=== PATIENT | female | born 1960 | race Caucasian/White ===

== ENCOUNTER 2024-02-11 08:40 | Outpatient (OUT) | payer OTHER, SELFPAY ==
--- NOTE | 2024-02-11 08:43 | MM_ITS ---
Patient Name: BROOKLYNN KAISER MR#: [id number] : 1960 Exam Date: 02/11/2024 Ordering Doctor: DR MAGDI MURILLO M.D. RADIOLOGY REPORT PROCEDURE: MM TOMOSYNTHESIS SCREENING BI COMPARISON: MG MAMM SCREEN 3D DEANN CAD, 11/05/2022. MG MAMM SCREEN DEANN W CAD, 01/30/2021. MG MAMM SCREEN DEANN W CAD, 04/18/2019. MG MAMM DEANN SCRN W CAD DIG, 04/09/2015. INDICATIONS: Screening Calculator Name NCI Breast Cancer Risk Assessment Tool 5 Year Breast Cancer Risk 1.10% Lifetime Breast Cancer Risk 4.90% Personal Breast Cancer No Personal Ovarian Cancer No Treatments None Family Cancers Father with esophageal cancer at age 74. LOCATION: [facility] BREAST COMPOSITION: Heterogeneously dense,which may obscure small masses. FINDINGS: DIAGNOSTIC CATEGORY 1--NEGATIVE. RIGHT BREAST: No significant suspicious finding. No significant change has occurred. LEFT BREAST: No significant suspicious finding. No significant change has occurred. RECOMMENDATIONS: ROUTINE MAMMOGRAM AND CLINICAL EVALUATION IN 12 MONTHS. PLEASE NOTE: A NORMAL MAMMOGRAM DOES NOT EXCLUDE THE POSSIBILITY OF BREAST CANCER. A CLINICALLY SUSPICIOUS PALPABLE LUMP SHOULD BE BIOPSIED. Dictated by: Zuhair Vazquez M.D. on 02/11/2024 at 15:16 Approved by: Zuhair Vazquez M.D. on 02/11/2024 at 15:19
== END 2024-02-11 08:41 | disposition home or self-care (01) ==
LOC: MAMMO 08:40
PROVIDERS: PCP Internal Medicine; Visit Provider Internal Medicine
DX: Z12.31 Encounter for screening mammogram for malignant neoplasm of breast (principal); Z80.8 Family history of malignant neoplasm of other organs or systems
CPT/HCPCS: 77063; 77067

== ENCOUNTER 2025-02-15 09:57 | Outpatient (OUT) | payer OTHER, SELFPAY ==
--- NOTE | 2025-02-15 09:59 | MM_ITS ---
Patient Name: BROOKLYNN KAISER MR#: [id number] : 1960 Exam Date: 02/15/2025 Ordering Doctor: DR DELROY KEMP RADIOLOGY REPORT PROCEDURE: MM TOMOSYNTHESIS SCREENING BI COMPARISON: MM TOMOSYNTHESIS SCREENING BI, 02/11/2024. MG MAMM SCREEN 3D DEANN CAD, 11/05/2022. MG MAMM SCREEN DEANN W CAD, 01/30/2021. MG MAMM DEANN SCRN W CAD DIG, 04/09/2015. INDICATIONS: Screening Calculator Name NCI Breast Cancer Risk Assessment Tool 5 Year Breast Cancer Risk 1.20% Lifetime Breast Cancer Risk 4.70% Personal Breast Cancer No Personal Ovarian Cancer No Treatments None Family Cancers Father with esophageal cancer at age 74. LOCATION: The BREAST COMPOSITION: The breasts are heterogeneously dense,which may obscure small masses. FINDINGS: DIAGNOSTIC CATEGORY 1--NEGATIVE. LEFT BREAST: No significant suspicious finding. RIGHT BREAST: No significant suspicious finding. RECOMMENDATIONS: ROUTINE MAMMOGRAM AND CLINICAL EVALUATION IN 12 MONTHS. PLEASE NOTE: A NORMAL MAMMOGRAM DOES NOT EXCLUDE THE POSSIBILITY OF BREAST CANCER. A CLINICALLY SUSPICIOUS PALPABLE LUMP SHOULD BE BIOPSIED. Dictated by: Amanuel Mancuso DO on 02/15/2025 at 16:29 Approved by: Amanuel Mancuso DO on 02/15/2025 at 16:30
--- OUTSIDE RECORDS SUMMARY | 2025-02-15 10:11 | XMS_ITS | CCD ---
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 Facility 12-28-2024 Telephone encounter Note Form atting of this note might be different from the original. Pt not seen since 06/2024 [facility] 12-28-2024 Miscellaneous Notes Formattin g of this note might be different from the original. Pt not seen since 06/2024 documented in this encounter [facility] 10-23-2024 Telephone encounter Note Form atting of this note might be different from the original. OARRS reviewed, Rx sent into patient's pharmacy. [facility] 10-23-2024 Miscellaneous Notes Formattin g of this note might be different from the original. OARRS reviewed, Rx sent into patient's pharmacy. documented in this encounter [facility] 09-23-2024 Telephone encounter Note Form atting of this note might be different from the original. OARRS reviewed, Rx sent into patient's pharmacy. [facility] 09-23-2024 Miscellaneous Notes Formattin g of this note might be different from the original. OARRS reviewed, Rx sent into patient's pharmacy. documented in this encounter [facility] 08-21-2024 Telephone encounter Note Form atting of this note might be different from the original. OARRS reviewed, Rx sent into patient's pharmacy. [facility] 08-21-2024 Miscellaneous Notes Formattin g of this note might be different from the original. OARRS reviewed, Rx sent into patient's pharmacy. documented in this encounter [facility] 07-21-2024 Telephone encounter Note Form atting of this note might be different from the original. OARRS reviewed, Rx sent into patient's pharmacy. [facility] 07-21-2024 Miscellaneous Notes Formattin g of this note might be different from the original. OARRS reviewed, Rx sent into patient's pharmacy. documented in this encounter [facility] 07-19-2024 History of Presen t illness Narrative Images from the original note were not included. Subjective Patient ID: Brooklynn Kaiser is a 63 y.o. female who presents for IGT. PT DOING WELL ON CURRENT MEDICATIONS OCC CHECKS BLOOD SUGARS AT HOME RANGES 100'S Current Outpatient Medications on File Prior to Visit Medication Sig Dispense Refill amphetamine-dextroamphetamine (Adderall) 30 MG tablet Take 1 tablet (30 mg) by mouth in the morning and 1 tablet (30 mg) before bedtime. 60 tablet 0 clotrimazole-betamethasone (Lotrisone) cream Apply topically 2 (two) times a day. diclofenac (Voltaren) 50 MG EC tablet Take 50 mg by mouth in the morning and 50 mg before bedtime. estrogens, conjugated,-methylTESTOSTERone (EEMT,Covaryx) 1.25-2.5 MG tablet Take 1 tablet by mouth Daily 30 tablet 5 levothyroxine (Synthroid, Levoxyl) 112 MCG tablet TAKE 1 TABLET BY MOUTH EVERY DAY IN THE MORNING ON AN EMPTY STOMACH 100 tablet 3 Brcxlcnp-Xozwtslja-WS 1 % solution Administer 4 drops into each ear in the morning and 4 drops in the evening and 4 drops before bedtime. 7.5 mL 3 Ozempic, 1 MG/DOSE, 4 MG/3ML solution pen-injector Inject 1 mg under the skin 1 (one) time per week tiZANidine (Zanaflex) 4 MG tablet Take 1 tablet (4 mg) by mouth as needed at bedtime for muscle spasms 30 tablet 0 No current facility-administered medications on file prior to visit. No Known Allergies Social History Tobacco Use Smoking status: Former Current packs/day: 0.00 Average packs/day: 1 pack/day for 36.2 years (36.2 ttl pk-yrs) Types: Cigarettes Start date: 11/29/1977 Quit date: 01/29/2014 Years since quittin.4 Smokeless tobacco: Never Substance Use Topics Alcohol use: Never Drug use: Never Family History Problem Relation Name Age of Onset Cancer Father Messi Abarca Diabetes Father Messi Abarca Diabetes Paternal Grandmother Selena New Stroke Paternal Grandmother Selena New Cancer Son Amanuel Martines Diabetes Father's Brother Shaq Abarca Diabetes Father's Brother Mac Abarca Miscarriages / Stillbirths Daughter Tatianna Miller Past Medical History: Diagnosis Date ADHD (attention deficit hyperactivity disorder) ([facility]) 2017 Cataract 2020 Diabetes mellitus ([facility]) 2012 Disease of thyroid gland ([facility]) 1997 Varicella 1970 Visual impairment Past Surgical History: Procedure Laterality Date EYE SURGERY 2020 HYSTERECTOMY 1999 TUBAL LIGATION 1996 Visit Vitals BP 122/70 Pulse 88 Ht 5' 4 Wt 143 lb SpO2 97% BMI 24.55 kg/m Smoking Status Former BSA 1.71 m Review of Systems Constitutional: Negative for chills, fatigue and fever. Respiratory: Negative for cough, shortness of breath and wheezing. Cardiovascular: Negative for chest pain, palpitations and leg swelling. Gastrointestinal: Negative for abdominal pain, constipation, diarrhea, nausea and vomiting. Skin: Negative for rash. Objective Physical Exam Constitutional: General: She is not in acute distress. Appearance: Normal appearance. She is well-developed. HENT: Head: Normocephalic and atraumatic. Eyes: General: No scleral icterus. Conjunctiva/sclera: Conjunctivae normal. Cardiovascular: Rate and Rhythm: Normal rate and regular rhythm. Heart sounds: Normal heart sounds. No murmur heard. Pulmonary: Effort: Pulmonary effort is normal. No respiratory distress. Breath sounds: Normal breath sounds. No wheezing, rhonchi or rales. Skin: General: Skin is warm and dry. Neurological: General: No focal deficit present. Mental Status: She is alert and oriented to person, place, and time. Psychiatric: Mood and Affect: Mood normal. Behavior: Behavior normal. Office Visit on 07/19/2024 Component Date Value Ref Range Status Hemoglobin A1C 07/19/2024 5.2 Final Office Visit on 04/21/2024 Component Date Value Ref Range Status Hemoglobin A1C 04/21/2024 5.6 Final Assessment/Plan Diagnoses and all orders for this visit: Benign essential hypertension (CMS/HCC) - Comprehensive metabolic panel; Future - CBC and differential Type 2 diabetes mellitus without complication, without long-term current use of insulin (CMS/HCC) - POCT Glycated hemoglobin, total - Lipid panel; Future - Microalbumin / creatinine urine ratio - FSBS log shows good control, most recent A1C is at or near goal. Continue current treatment plan as previously outlined without changes. Hypothyroidism, iatrogenic (CMS/HCC) - TSH W/REFLEX TO FT4; Future Lumbar disc narrowing Sciatica of left side Follow up in about 6 months (around 01/19/2025) for Routine F/U. documented in this encounter [facility] 01-12-2024 Telephone encounter Note Form atting of this note might be different from the original. sent [facility] 02-14-2024 Miscellaneous Notes Formattin g of this note might be different from the original. sent documented in this encounter [facility] 04-05-2022 Evaluation note Encounter Date Diagnosis Assessment Notes March, Insect bite (nonvenomous), left lower leg, initial encounter (ICD-10 - S80.862A) take medication as directed. TDap was updated today. Follow up with primary care provider if symptoms worsen March, Bitten or stung by nonvenomous insect and other nonvenomous arthropods, initial encounter (ICD-10 - W57.XXXA) [employer] Other Evaluation note* Diagnosis Menopausal and female climacteric states documented in this encounter [facility] HealthcareEvaluation note* Diagnosis Attention deficit hyperactivity disorder (ADHD), predominantly inattentive type (CMS/HCC)- Primary documented in this encounter [facility]* Diagnosis Attention deficit hyperactivity disorder (ADHD), predominantly inattentive type (CMS/HCC) documented in this encounter [facility]* Diagnosis Benign essential hypertension (CMS/HCC)- Primary Essential hypertension, benign Type 2 diabetes mellitus without complication, without long-term current use of insulin (CMS/HCC) Hypothyroidism, iatrogenic (CMS/HCC) Other iatrogenic hypothyroidism Lumbar disc narrowing Degeneration of lumbar or lumbosacral intervertebral disc Sciatica of left side documented in this encounter [facility]* Diagnosis Attention deficit disorder, unspecified hyperactivity presence documented [facility] this encounter [facility]* Diagnosis Attention deficit disorder, unspecified hyperactivity presence documented in this encounter [facility]* Diagnosis Attention deficit hyperactivity disorder (ADHD), predominantly inattentive type (CMS/HCC) [facility]* Diagnosis Menopausal and female climacteric states documented [facility]* Diagnosis Attention deficit hyperactivity disorder (ADHD), predominantly inattentive type (CMS/HCC) Hypothyroidism, iatrogenic (CMS/HCC) Other iatrogenic hypothyroidism documented in this encounter [facility] general Narrative - Reported* Type Description Date Medical History ADHD Medical History Graves Disease Medical History type II diabetes Surgical History hysterectomy Surgical History Thyroidectomy Hospitalization History See past surgical hx [employer] Other Summary Purpose Family History No Family History Records FoundNo Family History Records FoundNo Family History Records Found Advance Directives No Advanced Directives Records FoundNo Advanced Directives Records FoundNo Advanced Directives Records Found Additional Source Comments INFORMATION SOURCE (unrecogn ized section and content) DATE CREATED AUTHOR 05/24/2018 [facility] DATE CREATED AUTHOR AUTHOR'S ORGANIZ ATION 03/15/2023 [facility] DATE CREATED AUTHOR AUTHOR'S ORGANIZ ATION 02/04/2025 [facility] EPIC REASON FOR VISIT (unrecogniz ed section and content) Reason Comments Med Refill Reason Onset Date Comments Med Refill 09/23/2024 Reason Onset Date Comments Med Refill 10/23/2024 Reason Comments IGT Reason Onset Date Comments Med Refill 07/21/2024 Reason Onset Date Comments Med Refill 08/18/2024 Reason Onset Date Comments Med Refill 11/24/2024 Reason Onset Date Comments Med Refill 12/28/2024 Care Teams (unrecognized sec tion and content) Phone Banker Relationship Specialty Start Date End Date Roberto Mcclure MD [address] [facility] [address] [place] [address] PCP - General Internal Medicine 04/12/23 Phone Banker Relationship Specialty Start Date End Date Roberto Mcclure MD [address] [facility] [address] [place] [address] PCP - General Internal Medicine 04/12/23 Phone Banker Relationship Specialty Start Date End Date Roberto Mcclure MD [address] [facility] [address] [place] [address] PCP - General Internal Medicine 04/12/23 Phone Banker Relationship Specialty Start Date End Date Roberto Mcclure MD [address] [place] [address] [place] [address] PCP - General Internal Medicine 04/12/23 Phone Banker Relationship Specialty Start Date End Date Roberto Mcclure MD [address] [facility] [address] [place] [address] PCP - General Internal Medicine 04/12/23 Phone Banker Relationship Specialty Start Date End Date Roberto Mcclure MD [address] [facility] [address] [place] [address] PCP - General Internal Medicine 04/12/23 FOR RECORDS PERTAINING TO PATIENTS WHO ARE OR HAVE BEEN ENROLLED IN A CHEMICAL DEPENDENCY/SUBSTANCEABUSE PROGRAM, SOME INFORMATION MAY BE OMITTED. This clinical summary was aggregated from multiple sources. Caution should be exercised in using it in the provision of clinical care. This summary normalizes information from multiple sources, and as a consequence, information in this document may materially change the coding, format and clinical context of patient data. In addition, data may be omitted in some cases. CLINICAL DECISIONS SHOULD BE BASED ON THE PRIMARY CLINICAL RECORDS. [employer] provides no warranty or guarantee of the accuracy or completeness of information in this document.
== END 2025-02-15 09:58 | disposition home or self-care (01) ==
LOC: MAMMO 09:57
PROVIDERS: PCP Internal Medicine; Visit Provider Physician Assistant
DX: Z12.31 Encounter for screening mammogram for malignant neoplasm of breast (principal); Z80.8 Family history of malignant neoplasm of other organs or systems
CPT/HCPCS: 77063; 77067

== ENCOUNTER 2025-05-31 09:35 | Outpatient (OUT) | payer OTHER, SELFPAY ==
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
--- OUTSIDE RECORDS SUMMARY | 2025-05-31 09:37 | XMS_ITS | Encounter Summary ---
Author Organization [facility] Address [address] [facility] [place] [address] Care Team Providers Care Yield Loss Inspector Name Role Phone Roberto Mcclure MD Primary Care Provider [phone] Reason for Visit * Reason Onset Date Comments Med Refill 10/27/2023 Encounter Details Date Type Department Care Team (Late st Contact Info) Description 10/27/2023 Refill [facility] [address] [facility] [address] [place] [address] Roberto Mcclure MD [address] [facility] [address] [place] [address] Attention deficit disorder, unspecified hyperactivity presence Social History Tobacco Use Types Packs/Day Years Used Date Smoking Tobacco: Former Cigarettes 1 36.2 0 11/29/1977 - 01/29/2014 Smokeless Tobacco: Never Alcohol Use Standard Drinks/Week Comments Never 0 (1 standard drink = 0.6 oz pur e alcohol) Humiliation, Afraid, Rape, and Kick questionnair e [...] the phone with family, friends, or neighbors? More than three times a week 05/19/2023 How often do you get togethe r with friends or relatives? Once a week 05/19/2023 How often do you attend chur ch or yazidi services? More than 4 times per year 05/19/2023 Do you belong to any clubs o r organizations such as jehovah's witness groups, unions, fraternal or athletic groups, or school groups? Yes 05/19/2023 How often do you attend meet ings of the clubs or organizations you belong to? More than 4 times per year 05/19/2023 Are you , , di vorced, , never , or living with a partner? 05/19/2023 AUDIT-C Answer Date Recorded Q1: How often do you have a drink containing alc ohol? 2-4 times a month 05/19/2023 Q2: How many drinks containi ng alcohol do you have on a typical day when you are drinking? 1 or 2 05/19/2023 Q3: How often do you have si x or more drinks on one occasion? Less than monthly 05/19/2023 Overall Financial Resource Strain (CARDIA) Answe r Date Recorded How hard is it for you to pa y for the very basics like food, housing, medical care, and heating? Not hard at all 05/19/2023 [facility] - Occupational Stress Questionnaire Answer Date Recorded Do you feel stress - tense, restless, nervous, or anxious, or unable to sleep at night because your mind is troubled all the time - these days? Only a little 05/19/2023 Exercise Vital Sign Answer Date Recorde d On average, how many days pe r week do you engage in moderate to strenuous exercise (like a brisk walk)? 5 days 05/19/2023 On average, how many minutes do you engage in exercise at this level? 30 min 05/19/2023 Hunger Vital Sign Answer Date Recorded Within the past 12 months, y ou worried that your food would run out before you got the money to buy more. Never true 05/19/20 23 Within the past 12 months, t he food you bought just didn't last and you didn't have money to get more. Never true 05/19/2023 PRAPARE - Transportation Answer Date Re corded In the past 12 months, has l ack of transportation kept you from medical appointments or from getting medications? No 04/30 In the past 12 months, has l ack of transportation kept you from meetings, work, or from getting things needed for daily living? No 05/19/2023 Housing Stability Vital Sign Answer [...] place to sleep or slept in a long-term (including now)? No 05/19/2023 Comments Unknown Sex and Gender Information Value Date Recorded Sex Assigned at Not on file Legal Sex Female 7:12 PM EDT Gender Identity Not on file Sexual Orientation Not on file documented as of this encounter Miscellaneous Notes * Telephone Encounter - Tete Garza - 11/04/2023 10:51 AM EST Lvm to call back and get this scheduled * Telephone Encounter - VIRIDIANA Davison - 10/28/2023 8:20 AM EST Please help pt get set up for a controlled med follow up within the next month with Dr. Mcclure. Thisis the last refill until she is seen. * Telephone Encounter - Elaine Mo MA - 10/28/2023 7:18 AM EST Pt needs to make a 3 month follow up appt documented in this encounter Plan of Treatment Upcoming Encounters Date Type Department Care Team (Late st Contact Info) Description 08/01/2025 10:00 AM EDT Office Visit [facility] [address] [facility] [address] [place] [address] Anita Reed PA [address] [facility] [address] [place] [address] documented as of this encounter Visit Diagnoses Diagnosis Attention deficit disorder, unspecified hyperactivity presence documented in this encounter Care Teams Yield Loss Inspector Relationship Specialty Start Date End Date Roberto Mcclure MD [address] [facility] 110 [place] [address] PCP - General Internal Medicine 04/12/23 documented as of this encounter
--- OUTSIDE RECORDS SUMMARY | 2025-05-31 09:37 | XMS_ITS | Encounter Summary ---
Author Organization [facility] Address [address] [facility] [place] [address] Care Team Providers Care Regional Loss Prevention Manager Name Role Phone Roberto Mcclure MD Primary Care Provider [phone] Reason for Visit * Reason Onset Date Comments Med Refill 06/20/2024 Encounter Details Date Type Department Care Team (Late st Contact Info) Description 06/20/2024 Refill [facility] [address] [place] [address] [place] [address] Roberto Mcclure MD [address] [facility] 110 [place] [address] Attention deficit disorder, unspecified hyperactivity presence Social [...] often do you attend chur ch or yarsanism services? More than 4 times per year 05/19/2023 Do you belong to any clubs o r organizations such as uatsdin groups, unions, fraternal or athletic groups, or [...] and heating? Not hard at all 05/19/2023 [facility] of Occupat ional Health - Occupational Stress [...] encounter Miscellaneous Notes * Telephone Encounter - Galina Torres - 06/26/2024 3:39 PM EDT PT SCHEDULED * Telephone Encounter - Galina Torres - 06/21/2024 1:20 PM EDT LVM * Telephone Encounter - VIRIDIANA Davison - 06/20/2024 3:30 PM EDT Please help pt get set up for controlled medication follow up in June. OARRS reviewed, Rx sent into patient's pharmacy. documented in this encounter Plan of Treatment Upcoming Encounters Date Type Department Care Team (Late st Contact Info) Description 08/01/2025 10:00 AM EDT Office Visit [facility] 112 [facility] 110 [place] [address] Anita Reed PA 112 [facility] 110 [place] [address] documented as of this encounter Visit Diagnoses Diagnosis Attention deficit disorder, unspecified hyperactivity presence documented in this encounter Care Teams Regional Loss Prevention Manager Relationship Specialty Start Date End Date Roberto Mcclure MD 112 [facility] 110 [place] [address] PCP - General Internal Medicine 04/12/23 documented as of this encounter
--- OUTSIDE RECORDS SUMMARY | 2025-05-31 09:37 | XMS_ITS | Encounter Summary ---
Author Organization [facility] Address [address] [facility] [place] [address] Care Team Providers Care Client Services Coordinator Name Role Phone Roberto Mcclure MD Primary Care Provider Reason for Visit * Reason Onset Date Comments Med Refill 02/14/2024 Encounter Details Date Type Department Care Team (Late st Contact Info) Description 02/14/2024 Refill [facility] [address] [place] [address] [place] [address] Anita Reed PA [address] [place] 110 [place] [address] Attention deficit disorder, unspecified hyperactivity presence Social [...] often do you attend chur ch or bahai services? More than 4 times per year 05/19/2023 Do you belong to any clubs o r organizations such as christianity groups, unions, fraternal or athletic groups, or [...] and heating? Not hard at all 05/19/2023 [facility] of Occupat ional Health - Occupational Stress [...] place to sleep or slept in a assisted (including now)? No 05/19/2023 Comments Unknown Sex and Gender Information Value Date Recorded Sex Assigned at Not on file Legal Sex Female 7:12 PM EDT Gender Identity Not on file Sexual Orientation Not on file documented as of this encounter Miscellaneous Notes * Telephone Encounter - VIRIDIANA Davison - 02/14/2024 3:23 PM EDT OARRS reviewed, Rx sent into patient's pharmacy. Please help pt get set up for a routine medication follow up. Must be seen prior to additional refills. documented in this encounter Plan of Treatment Upcoming Encounters Date Type Department Care Team (Late st Contact Info) Description 08/01/2025 10:00 AM EDT Office Visit [facility] 112 [facility] 110 [place] [address] Anita Reed PA [address] [facility] 110 [place] [address] documented as of this encounter Visit Diagnoses Diagnosis Attention deficit disorder, unspecified hyperactivity presence documented in this encounter Care Teams Client Services Coordinator Relationship Specialty Start Date End Date Roberto Mcclure MD 112 [facility] 110 [place] [address] PCP - General Internal Medicine 04/12/23 documented as of this encounter
--- OUTSIDE RECORDS SUMMARY | 2025-05-31 09:37 | XMS_ITS | Encounter Summary ---
Author Organization [facility] Address [address] [facility] [place] [address] Care Team Providers Care Life Care Planner Name Role Phone Roberto Mcclure MD Primary Care Provider [phone] Encounter Details Date Type Department Care Team (Late st Contact Info) Description 02/11/2024 Clinisync Result Encounter [facility] External Department Unsolicited Roberto Mcclure MD [address] [place] [address] [place], [place] [phone] Social History Tobacco Use Types Packs/Day Years [...] 05/19/2023 How often do you attend chur or amish services? More than 4 times per year 05/19/2023 Do you belong to any clubs o r organizations such as buddhist groups, unions, fraternal or athletic groups, or [...] and heating? Not hard at all 05/19/2023 [facility] of Occupat ional Health - Occupational Stress [...] place to sleep or slept in a penitentiary (including now)? No 05/19/2023 Comments Unknown Sex [...] EDT Office Visit [facility] 112 [facility] 110 [place] [address] Anita Reed PA 112 [facility] 110 [place] [address] documented as of this encounter Procedures Procedure Name Priority Date/Time Associated Diagnosis Comments MM TOMOSYNTHESIS SCREENING BI 02/11/2024 3:19 PM EDT documented in this encounter Results * MM TOMOSYNTHESIS SCREENING BI (02/11/2024 3:19 PM EDT) Anatomical Region Laterality Modality Other 02/11/2024 3:19 PM EDT Narrative 02/11/2024 3:20 PM EDT The [address] [address] Mammography Report Signed Patient: Daisha Mercer MR#: [id number] : 1960 Acct:[id number] Age/Sex: 63 / F ADM Date: 02/11/24 Loc: MAMMO Attending Dr: ROBERTO MCCLURE Ordering Physician: ROBERTO MCCLURE Results: Date of Service: 02/11/24 Follow Up: Procedure(s): MM tomosynthesis screening BI Accession Number(s): [id number] cc: ROBERTO MCCLURE Patient Name: DAISHA MERCER MR#: [id number] : 1960 Exam Date: 02/11/2024 Ordering Doctor: DR ROBERTO MCCLURE M.D. RADIOLOGY REPORT PROCEDURE: MM TOMOSYNTHESIS SCREENING BI COMPARISON: MG MAMM SCREEN 3D DEANN CAD, 11/05/2022. MG MAMM SCREEN DEANN W CAD, 01/30/2021. MG MAMM SCREEN DEANN W CAD, 04/18/2019. MG MAMM DEANN SCRN W CAD DIG, 04/09/2015. INDICATIONS: Screening Calculator Name NCI Breast Cancer Risk Assessment Tool 5 Year Breast Cancer Risk 1.10% Lifetime Breast Cancer Risk 4.90% Personal Breast Cancer No Personal Ovarian Cancer No Treatments None Family Cancers Father with esophageal cancer at age 74. LOCATION: The [facility] BREAST COMPOSITION: Heterogeneously dense,which may obscure small masses. FINDINGS: DIAGNOSTIC CATEGORY 1--NEGATIVE. RIGHT BREAST: No significant suspicious finding. No significant change has occurred. LEFT BREAST: No significant suspicious finding. No significant change has occurred. RECOMMENDATIONS: ROUTINE MAMMOGRAM AND CLINICAL EVALUATION IN 12 MONTHS. PLEASE NOTE: A NORMAL MAMMOGRAM DOES NOT EXCLUDE THE POSSIBILITY OF BREAST CANCER. A CLINICALLY SUSPICIOUS PALPABLE LUMP SHOULD BE BIOPSIED. Dictated by: Zuhair Vazquez M.D. on 02/11/2024 at 15:16 Approved by: Zuhair Vazquez M.D. on 02/11/2024 at 15:19 Dictated By: Zuhair Vazquez M.D. Signed By: 02/11/24 1520 DD/ 1519 TD/TT: Geography Head: Procedure Note Radiology, Radiologist, MD - 02/11/2024 [place] [address] Mammography Report Signed Patient: Daisha Mercer MMR#: [id number] : 1960Acct:[id number] Age/Sex: 63 / FADM Date: 02/11/24 Loc: MAMMO Attending Dr: ROBERTO MCCLURE Ordering Physician: ROBERTO MCCLUREResults: Date of Service: 02/11/24Follow Up: Procedure(s): MM tomosynthesis screening BI Accession Number(s): [id number] cc: CHIDIDARRIUSROBERTO Patient Name: DAISHA MERCER MR#: [id number] : 1960 Exam Date: 02/11/2024 Ordering Doctor: DR ROBERTO MCCLURE M.D. RADIOLOGY REPORT PROCEDURE: MM TOMOSYNTHESIS SCREENING BI COMPARISON: MG MAMM SCREEN 3D DEANN CAD, 11/05/2022. MG MAMM SCREEN BILW CAD, 01/30/2021. MG MAMM SCREEN DEANN W CAD, 04/18/2019. MG MAMM DEANN SCRN WCAD DIG, 04/09/2015. INDICATIONS: Screening Calculator Name NCI Breast Cancer Risk Assessment Tool 5 Year Breast Cancer Risk 1.10% Lifetime Breast Cancer Risk 4.90% Personal Breast Cancer No Personal Ovarian Cancer No Treatments None Family Cancers Father with esophageal cancer at age 74. LOCATION: The [facility] BREAST COMPOSITION: Heterogeneously dense,which may obscure smallmasses. FINDINGS: DIAGNOSTIC CATEGORY 1--NEGATIVE. RIGHT BREAST: No significant suspicious finding. No significant changehas occurred. LEFT BREAST: No significant suspicious finding. No significant changehas occurred. RECOMMENDATIONS: ROUTINE MAMMOGRAM AND CLINICAL EVALUATION IN 12 MONTHS. PLEASE NOTE: A NORMAL MAMMOGRAM DOES NOT EXCLUDE THE POSSIBILITY OFBREAST CANCER. A CLINICALLY SUSPICIOUS PALPABLE LUMP SHOULD BE BIOPSIED. Dictated by: Zuhair Vazquez M.D. on 02/11/2024 at 15:16 Approved by: Zuhair Vazquez M.D. on 02/11/2024 at 15:19 Dictated By: Zuhair Vazquez M.D. Signed By:02/11/24 1520 DD/ 1519 TD/TT: Geography Head: Roberto Mcclure MD [facility] Final Result documented in this encounter Visit Diagnoses Not on filedocumented in this encounter Care Teams Life Care Planner Relationship Specialty Start Date End Date Roberto Mcclure MD [address] [place] [address] PCP - General Internal Medicine 04/12/23 documented as of this encounter
--- OUTSIDE RECORDS SUMMARY | 2025-05-31 09:38 | XMS_ITS | Encounter Summary ---
Author Organization [facility] Address [address] [facility] [place] [address] Care Team Providers Care Filling Hauler Name Role Phone Roberto Mcclure MD Primary Care Provider [phone] Encounter Details Date Type Department Care Team (Late st Contact Info) Description 05/29/2025 Telephone [facility] [address] [facility] 110 [place] [phone] Roberto Mcclure MD [address] [facility] 110 [place], [place] [id number] Social History Tobacco Use Types Packs/Day Years [...] How often do you attend chur or gnosticism services? More than 4 times per year 07/19/2024 Do you belong to any clubs o r organizations such as anglican groups, unions, fraternal or athletic groups, or [...] and heating? Not hard at all 07/19/2024 PHQ-2 Answer Date Recorded Patient Health Questionnaire-2 Score 0 05/04/2025 [facility] of Occupat ional Health - Occupational Stress [...] place to sleep or slept in a custodial (including now)? No 05/19/2023 Housing Stability Vital [...] any time in the past 12 m [facility], were you homeless or living in a custodial (including now)? No 07/19/2024 Comments Unknown Sex and Gender Information Value Date Recorded Sex Assigned at Not on file Legal Sex Female 7:12 PM EDT Gender Identity Not on file Sexual Orientation Not on file documented as of this encounter Miscellaneous Notes * Telephone Encounter - Divina Goodwin LPN - 05/30/2025 8:07 AM EDT Will watch for pa form * Telephone Encounter - Tete Garza - 05/29/2025 3:39 PM EDT estrogens, conjugated,-methylTESTOSTERone (EEMT,Covaryx) 1.25-2.5 MG tablet Patient said this they need a prior auth for this med sent over documented in this encounter Plan of Treatment Upcoming Encounters Date Type Department Care Team (Late st Contact Info) Description 08/01/2025 10:00 AM EDT Office Visit [facility] 112 [facility] 110 [place] [address] Anita Reed PA 112 [facility] 110 [place] [address] documented as of this encounter Visit Diagnoses Not on filedocumented in this encounter Care Teams Filling Hauler Relationship Specialty Start Date End Date Roberto Mcclure MD [address] [facility] 110 [place] [address] PCP - General Internal Medicine 04/12/23 documented as of this encounter
--- OUTSIDE RECORDS SUMMARY | 2025-05-31 09:38 | XMS_ITS | Encounter Summary ---
Author Organization [facility] Address [address] [facility] [place] [address] Care Team Providers Care Gasoline Tester Name Role Phone Roberto Mcclure MD Primary Care Provider [phone] Encounter Details Date Type Department Care Team (Late st Contact Info) Description 05/07/2025 Abstract [facility] [address] [facility] 110 [place] [phone] Roberto Mcclure MD [address] [facility] 110 [place] [address] Social History Tobacco Use Types Packs/Day Years [...] How often do you attend chur or evangelical services? More than 4 times per year 07/19/2024 Do you belong to any clubs o r organizations such as jew groups, unions, fraternal or athletic groups, or [...] Recorded Patient Health Questionnaire-2 Score 0 05/04/2025 [facility] of Occupat ional Health - Occupational Stress [...] place to sleep or slept in a detention (including now)? No 05/19/2023 Housing Stability Vital [...] any time in the past 12 m [facility], were you homeless or living in a detention (including now)? No 07/19/2024 Comments Unknown Sex and Gender Information Value Date Recorded Sex Assigned at Not on file Legal Sex Female 7:12 PM EDT Gender Identity Not on file Sexual Orientation Not on file documented as of this encounter Plan of Treatment Upcoming Encounters Date Type Department Care Team (Late st Contact Info) Description 08/01/2025 10:00 AM EDT Office Visit [facility] [address] [facility] 110 [place] [address] Anita Reed PA [address] [facility] 110 [place] [address] documented as of this encounter Visit Diagnoses Not on filedocumented in this encounter Care Teams Gasoline Tester Relationship Specialty Start Date End Date Roberto Mcclure MD 112 [facility] 110 [place] [address] PCP - General Internal Medicine 04/12/23 documented as of this encounter
--- OUTSIDE RECORDS SUMMARY | 2025-05-31 09:38 | XMS_ITS | Encounter Summary ---
Author Organization [facility] Address [address] [facility] [place] [address] Care Team Providers Care Car Sales Representative Name Role Phone Roberto Mcclure MD Primary Care Provider [phone] Encounter Details Date Type Department Care Team (Late st Contact Info) Description 05/30/2025 Abstract [facility] [address] [facility] 110 [place] [phone] Roberto Mcclure MD [address] [facility] 110 [place] [address] Social History Tobacco Use Types Packs/Day Years [...] How often do you attend chur or christianity services? More than 4 times per year 07/19/2024 Do you belong to any clubs o r organizations such as presybeterian groups, unions, fraternal or athletic groups, or [...] Recorded Patient Health Questionnaire-2 Score 0 05/04/2025 [facility] of Occupat ional Health - [...] place to sleep or slept in a alf (including now)? No 05/19/2023 Housing Stability Vital [...] any time in the past 12 m [facility], were you homeless or living in a alf (including now)? No 07/19/2024 Comments Unknown Sex [...] Office Visit [facility] [address] [facility] 110 [place] [address] Anita Reed PA [address] [facility] 110 [place] [address] documented as of this encounter Visit Diagnoses Not on filedocumented in this encounter Care Teams Car Sales Representative Relationship Specialty Start Date End Date Roberto Mcclure MD 112 [facility] 110 [place] [address] PCP - General Internal Medicine 04/12/23 documented as of this encounter
--- OUTSIDE RECORDS SUMMARY | 2025-05-31 09:38 | XMS_ITS | Clinical Summary ---
Author Organization [facility] Address [address] [place] [address] Care Team Providers Care Wire Stretcher Name Role Phone Roberto Mcclure MD Primary Care Provider [phone] Allergies No known active allergies Medications clotrimazole-beta methasone (Lotrisone) cream Apply topically 2 (two) times a day. Active diclofenac (Voltaren) 50 MG EC tablet Take 50 mg by mouth in the morning and 50 mg before bedtime. Active tiZANidine (Zanaflex) 4 MG tabletIndications :Sciatica of left side Take 1 tablet (4 mg) by mouth as needed at bedtime for muscle spasms 30 tablet 4 Active levothyroxine (Synthroid, Levoxyl) 112 MCG tabletIndications :Hypothyroidism, iatrogenic Take 1 tablet (112 mcg) by mouth in the morning. Take before meals. 100 tablet 3 5 Active semaglutide (Ozempic, 1 MG/DOSE,) 4 MG/3ML solution pen-injectorIndic ations:Type 2 diabetes mellitus without complication, without long-term current use of insulin (HCC) Inject 1 mg under the skin 1 (one) time per week 9 mL 3 5 Active amphetamine-dextr oamphetamine (Adderall) 30 MG tabletIndications :Attention deficit hyperactivity disorder (ADHD), predominantly inattentive type Take 1 tablet (30 mg) by mouth in the morning and 1 tablet (30 mg) before bedtime. 60 tablet 5 025 Active estrogens, conjugated,-methy lTESTOSTERone (EEMT,Covaryx) 1.25-2.5 MG tabletIndications :Menopausal and female climacteric states Take 1 tablet by mouth Daily 100 tablet 3 5 Active estrogens, conjugated,-methy lTESTOSTERone (EEMT,Covaryx) 1.25-2.5 MG tabletIndications :Menopausal and female climacteric states Take 1 tablet by mouth Daily 30 tablet 5 4 025 Discontin ued(Reord er) semaglutide (Ozempic, 1 MG/DOSE,) 4 MG/3ML solution pen-injectorIndic ations:Type 2 diabetes mellitus without complication, without long-term current use of insulin (HCC) Inject 1 mg under the skin 1 (one) time per week 1 each 3 5 025 Discontin ued(Reord er) amphetamine-dextr oamphetamine (Adderall) 30 MG tabletIndications :Attention deficit hyperactivity disorder (ADHD), predominantly inattentive type Take 1 tablet (30 mg) by mouth in the morning and 1 tablet (30 mg) before bedtime. 60 tablet 5 025 Discontin ued(Reord er) estrogens, conjugated,-methy lTESTOSTERone (EEMT,Covaryx) 1.25-2.5 MG tabletIndications :Menopausal and female climacteric states Take 1 tablet by mouth Daily 100 tablet 3 5 025 Discontin ued(Reord er) Active Problems Problem Noted Date Diagnosed Date Attention deficit hyperactiv ity disorder (ADHD), predominantly inattentive type 09/23/2024 Type 2 diabetes mellitus wit hout complication, without long-term current use of insulin 07/19/2024 Chronic interstitial cystitis 04/08/2023 History of hysterectomy 04/08/2023 History of thyroidectomy, total 04/08/2023 Hypothyroidism, iatrogenic 04/08/2023 IGT (impaired glucose tolerance) 04/08/2023 Lumbar disc narrowing 04/08/2023 Myalgia 04/08/2023 Sciatica 04/08/2023 Benign essential hypertension 07/24/2008 Resolved Problems Problem Noted Date Diagnosed Date Resolved Date Attention or concentration deficit 09/23/2024 09/23/2024 Otitis externa 04/08/2023 02/02/2025 Encounters Date Type Department Care Team Description 05/30/2025 Abstract [facility] [address] [place] [address] [place] [address] Roberto Mcclure MD 05/29/2025 Telephone [facility] [address] [place] [address] [place] [address] Roberto Mcclure MD 05/14/2025 Refill [facility] [address] [place] [address] [place] [address] Roberto Mcclure MD Menopausal and female climacteric states 05/13/2025 Refill [facility] [address] [place] [address] [place] [address] Roberto Mcclure MD Menopausal and female climacteric states; Attention deficit hyperactivity disorder (ADHD), predominantly inattentive type 05/11/2025 Refill [facility] [address] [facility] [address] [place] [address] Roberto Mcclure MD Menopausal and female climacteric states 05/11/2025 Refill [facility] [address] [facility] [address] [place] [address] Roberto Mcclure MD Attention deficit hyperactivity disorder (ADHD), predominantly inattentive type 05/07/2025 Abstract [facility] [address] [facility] [address] [place] [address] Roberto Mcclure MD 05/04/2025 9:00 AM EDT Office Visit [facility] [address] [place] [address] [place] [address] Anita Reed PA Benign essential hypertension (Primary Dx); Screening for malignant neoplasm of colon; Attention deficit hyperactivity disorder (ADHD), predominantly inattentive type ; Type 2 diabetes mellitus without complication, without long-term current use of insulin (HCC) 05/04/2025 Bamboo flowsheet [facility] [address] [place] [address] [place] [address] Anita Reed PA 05/04/2025 Travel 04/27/2025 Travel 04/09/2025 Refill [facility] [address] [facility] [address] [place] [address] Roberto Mcclure MD Attention deficit hyperactivity disorder (ADHD), predominantly inattentive type 03/05/2025 Refill [facility] [address] [facility] [address] [place] [address] Anita Reed PA Attention deficit hyperactivity disorder (ADHD), predominantly inattentive type from Last 3 Months Immunizations Immunization Administration Dates Next Due Influenza, injectable, MDCK, quadrivalent 2018 Influenza, injectable, quadrivalent, preservativ e free 09/19/2021,10/09/2020 Influenza, seasonal, intradermal, preservative f ree 09/01/2017 Moderna SARS-CoV-2 50mcg/0.5mL Booster 2 Moderna SARS-CoV-2 Vaccination 02/08/2021 Tdap 04/05/2022 Zoster, Recombinant 11/23/2019,09/22/2019 Family History Medical History Relation Name Comments Miscarriages / Stillbirths Daughter Tatianna Miller Cancer Father Messi Ray Diabetes Father Messi Abarca Diabetes Father's Brother 1 Shaq Ray Diabetes Father's Brother 2 Mac Ray Diabetes Paternal Grandmother Selena New Stroke Paternal Grandmother Selena New Cancer Son Amanuel Martines Relation Name Status Comments Daughter Tatianna Miller Father Messi Ray Father's Brother 1 Shaq Abarca Father's Brother 2 Mac Abarca Paternal Grandmother Selena New Son Amanuel Martines Social History Tobacco Use Types Packs/Day Years Used Date Smoking Tobacco: Former Cigarettes 1 36.2 0 11/29/1977 - 01/29/2014 Smokeless Tobacco: Never Tobacco Cessation:Counseling Given: Not Answered Alcohol Use Standard Drinks/Week Comments Never 0 [...] How often do you attend chur or pentecostalism services? More than 4 times per year 07/19/2024 Do you belong to any clubs o r organizations such as jain groups, unions, fraternal or athletic groups, or [...] Recorded Patient Health Questionnaire-2 Score 0 05/04/2025 [facility] Occup[facility] ional Health - Occupational Stress [...] place to sleep or slept in a half-way (including now)? No 05/19/2023 Housing Stability Vital [...] any time in the past 12 m [facility], were you homeless or living in a half-way (including now)? No 07/19/2024 Comments Unknown Sex and Gender Information Value Date Recorded Sex Assigned at Not on file Legal Sex Female 7:12 PM EDT Gender Identity Not on file Sexual Orientation Not on file Last Filed Vital Signs Vital Sign Reading Time Taken Comments Blood Pressure 116/78 05/04/2025 8:58 AM EDT Pulse 78 05/04/2025 8:58 AM EDT Temperature 36.9 C (98.5 F) 04/21/2024 11:03 AM EDT Respiratory Rate 16 05/04/2025 8:58 AM EDT Oxygen Saturation 97% 05/04/2025 8:58 AM EDT Inhaled Oxygen Concentration - - Weight 62.8 kg (138 lb 6.4 oz) 05/04/2025 8:58 A M EDT Height 162.6 cm (5' 4 ) 05/04/2025 8:58 AM EDT Body Mass Index 23.76 05/04/2025 8:58 AM EDT Plan of Treatment Upcoming Encounters Date Type Department Care Team (Late st Contact Info) Description 08/01/2025 10:00 AM EDT Office Visit [facility] [address] [facility] [address] [place] [address] Anita Reed PA [address] [facility] [address] [place] [address] Health Maintenance Due Date Last Done Comments CT Colonography 1960 FIT-DNA 1960 FIT 1960 FOBT 1960 Lung Cancer Screening Shared Decision Making 1960 Sigmoidoscopy 1960 Colonoscopy 04/15/2025 04/15/2015 Colorectal Cancer Screening 04/15/2025 Diabetes: Hemoglobin A1C 05/05/2025 025, 07/19/2024, 04/21/2024, Additional history exists Diabetes: Urine Protein Screening 07/26/2025 024 Influenza Vaccine (#1) 2025 , 10/09/2020, 09/15/2019, Additional history exists Mammogram 02/15/2026 02/15/2025, 01/27, 11/05/2022, Additional history exists Diabetes: Retinopathy Screening 04/25/2026 4 Procedures Procedure Name Priority Date/Time Associated Diagnosis Comments MM TOMOSYNTHESIS SCREENING BI 02/15/2025 4:30 PM EDT POCT GLYCATED HEMOGLOBIN, TOTAL Routine 02/02/2025 10:06 AM EST Type 2 diabetes mellitus without complication, without long-term current use of insulin (HCC) MICROALBUMIN / CREATININE URINE RATIO Routine 07/26/2024 10:55 AM EDT Type 2 diabetes mellitus without complication, without long-term current use of insulin (HCC) DIABETIC RETINOPATHY SCREENING - OU - BOTH EYES Routine 04/25/2024 COLONOSCOPY Routine 04/15/2015 12:00 PM EDT from Last 3 Months or Most Recently Relevant to Health Maintenance Results * MM TOMOSYNTHESIS SCREENING BI (02/15/2025 4:30 PM EDT) Anatomical Region Laterality Modality Other 02/15/2025 4:30 PM EDT Narrative 02/15/2025 4:31 [place] [address] Mammography Report Signed Patient: BROOKLYNN MERCER MR#: [id number] : 1960 Acct:[id number] Age/Sex: 64 / F ADM Date: 02/15/25 Loc: MAMMO Attending Dr: ANITA REED Ordering Physician: ANITA REED Results: Date of Service: 02/15/25 Follow Up: Procedure(s): MM tomosynthesis screening BI Accession Number(s): [id number] cc: ROBERTO MCCLURE ; ANITA REED Patient Name: BROOKLYNN MERCER MR#: [id number] : 1960 Exam Date: 02/15/2025 Ordering Doctor: DR ANITA KEMP RADIOLOGY REPORT PROCEDURE: MM TOMOSYNTHESIS SCREENING BI COMPARISON: MM TOMOSYNTHESIS SCREENING BI, 02/11/2024. MG MAMM SCREEN 3D DEANN CAD, 11/05/2022. MG MAMM SCREEN DEANN W CAD, 01/30/2021. MG MAMM DEANN SCRN W CAD DIG, 04/09/2015. INDICATIONS: Screening Calculator Name NCI Breast Cancer Risk Assessment Tool 5 Year Breast Cancer Risk 1.20% Lifetime Breast Cancer Risk 4.70% Personal Breast Cancer No Personal Ovarian Cancer No Treatments None Family Cancers Father with esophageal cancer at age 74. LOCATION: [facility] BREAST COMPOSITION: The breasts are heterogeneously dense,which may obscure small masses. FINDINGS: DIAGNOSTIC CATEGORY 1--NEGATIVE. LEFT BREAST: No significant suspicious finding. RIGHT BREAST: No significant suspicious finding. RECOMMENDATIONS: ROUTINE MAMMOGRAM AND CLINICAL EVALUATION IN 12 MONTHS. PLEASE NOTE: A NORMAL MAMMOGRAM DOES NOT EXCLUDE THE POSSIBILITY OF BREAST CANCER. A CLINICALLY SUSPICIOUS PALPABLE LUMP SHOULD BE BIOPSIED. Dictated by: Amanuel Mancuso DO on 02/15/2025 at 16:29 Approved by: Amanuel Mancuso DO on 02/15/2025 at 16:30 Dictated By: Amanuel Mancuso M.D. Signed By: 02/15/25 1631 DD/ 1630 TD/TT: Ship Propeller Finisher: Procedure Note Radiology, Radiologist, MD - 02/15/2025 [place] [address] Mammography Report Signed Patient: BROOKLYNN MERCER MMR#: [id number] : 1960Acct:[id number] Age/Sex: 64 / FADM Date: 02/15/25 Loc: MAMMO Attending Dr: ANITA REED Ordering Physician: ANITA REED MResults: Date of Service: 02/15/25Follow Up: Procedure(s): MM tomosynthesis screening BI Accession Number(s): [id number] cc: ROBERTO MCCLURE ; ANITA REED Patient Name: BROOKLYNN MERCER MR#: [id number] : 1960 Exam Date: 02/15/2025 Ordering Doctor: DR ANITA REED PA RADIOLOGY REPORT PROCEDURE: MM TOMOSYNTHESIS SCREENING BI COMPARISON: MM TOMOSYNTHESIS SCREENING BI, 02/11/2024. MG MAMM [id number] DEANN CAD, 11/05/2022. MG MAMM SCREEN DEANN W CAD, 01/30/2021. MG MAMM BILSCRN W CAD DIG, 04/09/2015. INDICATIONS: Screening Calculator Name NCI Breast Cancer Risk Assessment Tool 5 Year Breast Cancer Risk 1.20% Lifetime Breast Cancer Risk 4.70% Personal Breast Cancer No Personal Ovarian Cancer No Treatments None Family Cancers Father with esophageal cancer at age 74. LOCATION: [facility] BREAST COMPOSITION: The breasts are heterogeneously dense,which may obscure small masses. FINDINGS: DIAGNOSTIC CATEGORY 1--NEGATIVE. LEFT BREAST: No significant suspicious finding. RIGHT BREAST: No significant suspicious finding. RECOMMENDATIONS: ROUTINE MAMMOGRAM AND CLINICAL EVALUATION IN 12 MONTHS. PLEASE NOTE: A NORMAL MAMMOGRAM DOES NOT EXCLUDE THE POSSIBILITY OFBREAST CANCER. A CLINICALLY SUSPICIOUS PALPABLE LUMP SHOULD BE BIOPSIED. Dictated by: Amanuel Mancuso DO on 02/15/2025 at 16:29 Approved by: Amanuel Mancuso DO on 02/15/2025 at 16:30 Dictated By: Amanuel Mancuso M.D. Signed By:02/15/25 1631 DD/ 1630 TD/TT: Ship Propeller Finisher: us Anita KEMP [facility] Final Result * POCT Glycated hemoglobin, total (02/02/2025 10:06 AM EST) Hemoglobin A1C 5.3 Blood 02/02/2025 10:0 6 AM EST us Anita KEMP POINT OF CARE TEST ENTER/EDIT ORDERABLES Final Result * (ABNORMAL) Microalbumin / creatinine urine ratio (07/26/2024 10:55 AM EDT) CREATININE, RANDOM URINE 102 20 - 275 mg/dL [facility] ALBUMIN, URINE 5.4 See Note: mg/dL [facility] Comment: Reference Range: Reference Range Not established ALBUMIN/CREATININE RATIO, RANDOM URINE 53(H) <30 mg/g creat [facility] Comment: The ADA defines abnormalities in albumin excretion as follows: Albuminuria Category Result (mg/g creatinine) Normal to Mildly increased <30 Moderately increased 30-299 Severely increased > OR = 300 The ADA recommends that at least two of three specimens collected within a 3-6 month period be abnormal before considering a patient to be within a diagnostic category. Urine Urine specimen obtained by clean catch procedure / Unknown 07/26/2024 10:55 AM EDT 07/26/2024 10:55 AM EDT Narrative [facility] - 07/27/2024 12:18 PM EDT SPLIT 07/24/2024 FROM [id number] Resulting Agency Comment Performing Organization Information Site ID: [id number] Name: [facility] Address: [address] [place] [address] Director: London Garza MD us Roberto Mcclure MD LAB URINE ORDERABLES Final Res ult [facility] * Diabetic Retinopathy Screening - OU - Both Eyes (04/25/2024) RESULTS ndr Anatomical Region Laterality Modality Head Other 04/25/2024 us Roberto Mcclure MD OPHTH PHOTOGRAPHY Final Result * Colonoscopy (04/15/2015 12:00 PM EDT) Anatomical Region Laterality Modality Endoscopy 04/15/2015 12:0 0 PM EDT Narrative 04/15/2015 12:00 PM EDT PERFORMED AT [facility] LOCATION:[id number] diverticulosis/ int./ext. hemorrhoids Procedure Note CONVERSION, GENERIC - 04/15/2023 PERFORMED AT [facility] LOCATION:[id number] diverticulosis/ int./ext. hemorrhoids us Roberto Mcclure MD ENDOSCOPY PROCEDURE ORDERABLES Final Result from Last 3 Months or Most Recently Relevant to Health Maintenance Insurance [employer] Care Teams Wire Stretcher Relationship Specialty Start Date End Date Roberto Mcclure MD [address] [place] [address] PCP - General Internal Medicine 04/12/23
--- OUTSIDE RECORDS SUMMARY | 2025-05-31 09:38 | XMS_ITS | Encounter Summary ---
Author Organization [facility] Address [address] [facility] [place] [address] Care Team Providers Care Animal Control Licensing Worker Name Role Phone Roberto Mcclure MD Primary Care Provider [phone] Encounter Details Date Type Department Care Team (Late st Contact Info) Description 12/08/2023 Abstract [facility] [address] [facility] [address] [place] [address] Roberto Mcclure MD [address] [facility] [address] [place] [address] Social History Tobacco Use Types Packs/Day Years [...] often do you attend chur ch or rastafarian services? More than 4 times per year 05/19/2023 Do you belong to any clubs o r organizations such as orthodoxy groups, unions, fraternal or athletic groups, or [...] place to sleep or slept in a prison (including now)? No 05/19/2023 Comments Unknown Sex [...] Visit [facility] [address] [facility] [address] [place] [address] Anita Reed PA [address] [facility] [address] [place] [address] documented as of this encounter Visit Diagnoses Not on filedocumented in this encounter Care Teams Animal Control Licensing Worker Relationship Specialty Start Date End Date Roberto Mcclure MD [address] [facility] [address] [place] [address] PCP - General Internal Medicine 04/12/23 documented as of this encounter
--- OUTSIDE RECORDS SUMMARY | 2025-05-31 09:38 | XMS_ITS | Encounter Summary ---
Author Organization [facility] Address [address] [facility] [place] [address] Care Team Providers Care Lpn Home Health Name Role Phone Roberto Mcclure MD Primary Care Provider [phone] Encounter Details Date Type Department Care Team (Late st Contact Info) Description 12/01/2023 Abstract [facility] [address] [facility] [address] [place] [address] Roberto Mcclure MD [address] [facility] [address] [place] [address] Social History Tobacco Use Types Packs/Day Years [...] often do you attend chur ch or anabaptism services? More than 4 times per year 05/19/2023 Do you belong to any clubs o r organizations such as hindu groups, unions, fraternal or athletic groups, or [...] and heating? Not hard at all 05/19/2023 [facility] of Occupat ional Health - Occupational [...] place to sleep or slept in a halfway (including now)? No 05/19/2023 Comments Unknown Sex and Gender Information Value Date Recorded Sex Assigned at Not on file Legal Sex Female 7:12 PM EDT Gender Identity Not on file Sexual Orientation Not on file COVID-19 Exposure Response Date Recorded In the last 10 days, have yo u been in contact with someone who was confirmed or suspected to have Coronavirus/COVID-19? No / Unsure 11/06/2023 6:15 AM EST documented as of this encounter Plan of Treatment Upcoming Encounters Date Type Department Care Team (Late st Contact Info) Description 08/01/2025 10:00 AM EDT Office Visit [facility] [address] [facility] [address] [place] [address] Anita Reed PA [address] [place] [address] [place] [address] documented as of this encounter Visit Diagnoses Not on filedocumented in this encounter Care Teams Lpn Home Health Relationship Specialty Start Date End Date Roberto Mcclure MD [address] [place] [address] [place] [address] PCP - General Internal Medicine 04/12/23 documented as of this encounter
--- OUTSIDE RECORDS SUMMARY | 2025-05-31 09:38 | XMS_ITS | Encounter Summary ---
Author Organization [facility] Address [address] [facility] [place] [address] Care Team Providers Care Script Developer Name Role Phone Roberto Mcclure MD Primary Care Provider [phone] Encounter Details Date Type Department Care Team (Late st Contact Info) Description 01/04/2025 Abstract [facility] [address] [facility] [address] [place] [address] Roberto Mcclure MD [address] [facility] [address] [place] [address] Social History Tobacco Use Types Packs/Day Years [...] How often do you attend chur or mandaeism services? More than 4 times per year 07/19/2024 Do you belong to any clubs o r organizations such as judaism groups, unions, fraternal or athletic groups, or [...] and heating? Not hard at all 07/19/2024 [facility] - Occupational Stress Questionnaire Answer [...] any time in the past 12 m [facility], were you homeless or living in a [...] Visit [facility] [address] [facility] [address] [place] [address] Anita Reed PA [address] [facility] [address] [place] [address] documented as of this encounter Visit Diagnoses Not on filedocumented in this encounter Care Teams Script Developer Relationship Specialty Start Date End Date Roberto Mcclure MD [address] [facility] [address] [place] [address] PCP - General Internal Medicine 04/12/23 documented as of this encounter
--- OUTSIDE RECORDS SUMMARY | 2025-05-31 09:38 | XMS_ITS | Encounter Summary ---
Author Organization [facility] Address [address] [facility] [place] [address] Care Team Providers Care Welt Stitch Cleaner Name Role Phone Roberto Mcclure MD Primary Care Provider [phone] Encounter Details Date Type Department Care Team (Late st Contact Info) Description 01/04/2025 Abstract [facility] [address] [facility] [address] [place] [address] Roberto Mcclure MD [address] [facility] [address] [place] [address] Social History Tobacco Use Types Packs/Day Years [...] How often do you attend chur or denominational services? More than 4 times per year 07/19/2024 Do you belong to any clubs o r organizations such as adventist groups, unions, fraternal or athletic groups, or [...] and heating? Not hard at all 07/19/2024 [facility] - Occupational Stress Questionnaire [...] place to sleep or slept in a correction (including now)? No 05/19/2023 Housing Stability Vital [...] any time in the past 12 m [facility], were you homeless or living in a correction (including now)? No 07/19/2024 Comments Unknown Sex [...] Visit [facility] [address] [facility] [address] [place] [address] Anita Reed PA [address] [facility] [address] [place] [address] documented as of this encounter Visit Diagnoses Not on filedocumented in this encounter Care Teams Welt Stitch Cleaner Relationship Specialty Start Date End Date Roberto Mcclure MD [address] [facility] [address] [place] [address] PCP - General Internal Medicine 04/12/23 documented as of this encounter
== END 2025-05-31 09:36 | disposition home or self-care (01) ==
LOC: PST 09:35
PROVIDERS: PCP Internal Medicine; Visit Provider Surgery
DX: Z01.818 Encounter for other preprocedural examination (principal); Z12.11 Encounter for screening for malignant neoplasm of colon

== ENCOUNTER 2025-06-06 07:53 | Day surgery (SDC) | payer OTHER, SELFPAY ==
--- NOTE | 2025-06-06 | OP_ITS ---
OPERATION DATE: 06/06/2025 PREOPERATIVE DIAGNOSIS: Colorectal screening. POSTOPERATIVE DIAGNOSIS: 4 mm rectal polyp, as well as severe sigmoid diverticulosis. PROCEDURE: Colonoscopy to cecum with cold snare polypectomy x1. SURGEON: Indio Mason M.D. ANESTHESIA: Monitored anesthesia care. ESTIMATED BLOOD LOSS: Less than 1 mL. INDICATIONS AND CONSENT: Patient is a 64-year-old female presents for colorectal screening. Indications, risks, benefits, alternatives of proceeding with colonoscopy were explained extensively to the patient, including the risks of bleeding, colonic perforation or anesthetic complications. All of her questions were answered. Informed consent was obtained. PROCEDURE: Patient brought to the operating room, placed in the left lateral decubitus position. Monitored anesthesia care was provided. Rectal exam was performed, which showed no masses or blood. The scope was then inserted into the anal canal. Under direct visualization, it was advanced. With the aid of abdominal compression, it was advanced to the cecum where cecal markings were clearly identified. There was noted to be a good prep. Upon withdrawal of the scope, mucosal surfaces were carefully examined. There were no mass lesions or inflammatory changes. There was severe sigmoid diverticulosis, as well as some redundancy and tortuosity of the colon. Within the rectum, there was noted to be a 4 mm sessile polyp that was removed with cold snare with good hemostasis. The scope was retroflexed in the anal canal. There was no significant hemorrhoidal disease. The scope was then withdrawn. The patient tolerated procedure well, was sent to recovery room in good condition. Follow up surveillance colonoscopy likely in five years, but will depend on the pathology report. CC: Roberto Mcclure M.D. SOPHIA
[2025-06-06 08:00] VITALS: BP 136/68; PULSE 99; TEMP 36.2; O2SAT 97; BMI 23.2
[2025-06-06] MEDS: 0.9 % SODIUM CHLORIDE 500 ML 50 ML IV ×2 (08:28→09:36)
[2025-06-06 09:45] VITALS: BP 96/56; PULSE 77; TEMP 36.4; O2SAT 100
[2025-06-06 09:57] VITALS: BP 109/59; PULSE 70; O2SAT 100
[2025-06-06 10:13] VITALS: BP 115/59; PULSE 65; O2SAT 100
== END 2025-06-06 10:16 | disposition home or self-care (01) ==
LOC: SURGOUT 07:53
PROVIDERS: PCP Internal Medicine; Visit Provider Surgery
PROC: (CPT 00811; principal; 2025-06-06 09:00)
DX: Z12.11 Encounter for screening for malignant neoplasm of colon (principal); K57.30 Diverticulosis of large intestine without perforation or abscess without bleeding; D12.8 Benign neoplasm of rectum; Z80.0 Family history of malignant neoplasm of digestive organs; I10 Essential (primary) hypertension; E11.9 Type 2 diabetes mellitus without complications; Z98.51 Tubal ligation status; Z90.710 Acquired absence of both cervix and uterus; Z87.891 Personal history of nicotine dependence; Z79.85 Long-term (current) use of injectable non-insulin antidiabetic drugs; E89.0 Postprocedural hypothyroidism
CPT/HCPCS: 00811; 45385; 36415; 82948; J2371; J2704

== ENCOUNTER 2025-11-12 07:50 | Outpatient (OUT) | payer MEDICARE, OTHER, SELFPAY ==
--- OUTSIDE RECORDS SUMMARY | 2025-10-31 09:30 | XMS_ITS | Encounter Summary ---
Author Organization [facility] Address [address] [place] [address] Care Team Providers Care Grape Cutter Name Role Phone Roberto Mcclure MD Primary Care Provider [phone] Reason for Referral * Imaging (Routine) - AuthorizedSpecialtyDiagnoses / ProceduresReferred By ContactReferred To ContactRadiology Diagnoses Benign essential hypertension Abnormal electrocardiogram Left atrial enlargement Procedures Transthoracic Echo (TTE) Complete Anita Reed PA [address] [facility] [address] [place] [address] Phone: tel: fax: [facility] [address] [place] [address] Phone: tel: fax: Referral IDStatusReasonStart DateExpiration DateVisits RequestedVisits [id number] Perform Procedure / * Imaging (Routine) - AuthorizedSpecialtyDiagnoses / ProceduresReferred By ContactReferred To ContactRadiology Diagnoses Former smoker Procedures CT lung screening low dose Anita Reed PA [address] [facility] [address] [place] [address] Phone: tel: fax: [facility] [address] [facility] [address] [place] [address] Phone: tel: fax: Referral IDStatusReasonStart DateExpiration DateVisits RequestedVisits [id number]/3/20256/ Reason for Visit * ReasonCommentsMedicare Annual Wellness Visit Initial Encounter Details DateTypeDepartmentCare Team (Latest Contact Info)Urzbtwlnwbh28/03/2025 9:30 AM ESTOffice Visit [facility] [address] [facility] [address] [place] [address] Anita Reed PA [address] [facility] [address] [place] [address] Medicare annual wellness visit, initial (Primary Dx); ACP (advance care planning); Encounter for screening mammogram for malignant neoplasm of breast; Estrogen deficiency; Former smoker; Benign essential hypertension; Type 2 diabetes mellitus without complication, without long-term current use of insulin (HCC); Hypothyroidism, iatrogenic; Myalgia; Other problems related to lifestyle; Chronic interstitial cystitis; History of hysterectomy; History of thyroidectomy, total; Lumbar disc narrowing; Sciatica of left side; Attention deficit hyperactivity disorder (ADHD), predominantly inattentive type; Hormone replacement therapy; Sigmoid diverticulosis; Seborrheic dermatitis; Encounter for immunization; Abnormal electrocardiogram; Left atrial enlargement Social History Tobacco UseTypesPacks/DayYears UsedDateSmoking Tobacco: AgoxtdArxjeikpto226.2 11/29/1977 - 01/29/2014Smokeless Tobacco: NeverAlcohol UseStandard Drinks/Week CommentsNever0 (1 standard drink = 0.6 oz pure alcohol)B1300 Health Literacy AnswerDate RecordedHow often do you need to have someone help you when you read instructions, pamphlets, or other written material from your doctor or pharmacy? Never08/01/2025Humiliation, Afraid, Rape, and Kick questionnaireAnswerDate RecordedWithin the last year, have you been afraid of your partner or ex-partner?No08/01/2025Within the last year, have you been humiliated or emotionally abused in other ways by your partner or ex-partner?No08/01/2025 Within the last year, have you been kicked, hit, slapped, or otherwise physically hurt by your partner or ex-partner?No08/01/2025Within the last year, have you been raped or forced to have any kind of sexual activity by your part ner or ex-partner?No08/01/2025Social Connection and Isolation PanelAnswerDate RecordedIn a typical week, how many times do you talk on the phone with family, friends, or neighbors?More than three times a week08/01/2025How often do you get together with friends or relatives?Twice a week08/01/2025How often do you attend anglican or buddhism services?More than 4 times per year08/01/2025Do you belong to any clubs or organizations such as anglican groups, unions, fraternal or athletic groups, or school groups?Yes08/01/2025How often do you attend meetings of the clubs or organizations you belong to?More than 4 times per year08/01/2025 Are you , , , , never , or living with a partner?Xbyhrml2208/01/2025UDIT-CAnswerDate RecordedQ1: How often do you have a drink containing alcohol?Never08/01/2025Q2: How many drinks containing alcohol do you have on a typical day when you are drinking?Patient does not drink 08/01/2025Q3: How often do you have six or more drinks on one occasion?Never 08/01/2025Overall Financial Resource Strain (CARDIA)AnswerDate RecordedHow hard is it for you to pay for the very basics like food, housing, medical care, and heating?Not hard at all08/01/2025PHQ-2AnswerDate RecordedPatient Health Questionnaire-2 Tlbkh49201/01/2025[facility] [place] [facility] - Occupational Stress QuestionnaireAnswerDate RecordedDo you feel stress - tense, restless, nervous, or anxious, or unable to sleep at night because yourmind is troubled all the time - these days?Not at all08/01/2025Exercise Vital SignAnswer Date RecordedOn average, how many days per week do you engage in moderate to strenuous exercise (like a brisk walk)?4 days08/01/2025On average, how many minutes do you engage in exercise at this level?40 min08/01/2025Hunger Vital SignAnswerDate RecordedWithin the past 12 months, you worried that your food would run out before you got the money to buymore.Never true08/01/2025Within the past 12 months, the food you bought just didn't last and you didn't have money to get more.Never true08/01/2025PRAPARE - TransportationAnswerDate RecordedIn the past 12 months, has lack of transportation kept you from medical appointments or from getting medications?No08/01/2025In the past 12 months, has lack of transportation kept you from meetings, work, or from getting things needed for daily living?No08/01/2025Housing Stability Vital SignAnswerDate RecordedIn the last 12 months, was there a time when you were not able to pay the mortgage or rent on time?No05/19/2023In the last 12 months, how many places have you lived?In the last 12 months, was there a time when you did not have a steady place to sleep or slept in [facility] (including now)?No 05/19/2023Housing Stability Vital SignAnswerDate RecordedIn the last 12 months, was there a time when you were not able to pay the mortgage or rent on time?No 08/01/2025In the past 12 months, how many times have you moved where you were living?t any time in the past 12 months, were you homeless or living in a assisted (including now)?No08/01/2025CommentsUnknownSex and Gender InformationValueDate RecordedSex Assigned at BirthNot on fileLegal SexFemale 02/10/2023 7:12 PM EDTGender IdentityNot on fileSexual OrientationNot on file documented as of this encounter Last Filed Vital Signs Vital SignReadingTime TakenCommentsBlood Giwllviv636/8210/31/2025 9:40 AM EST Zyvws133010/31/2025 9:40 AM ESTTemperature--Respiratory Hudb338301/01/2025 9:40 AM ESTOxygen Gocohlcsgg89%10/31/2025 9:40 AM ESTInhaled Oxygen Concentration-- Qpxmcz99.8 kg (142 lb 12.8 oz)10/31/2025 9:40 AM PJCShqkwk455.6 cm (5' 4 ) 10/31/2025 9:40 AM ESTBody Mass Index24.51101/01/2025 9:40 AM ESTdocumented in this encounter Functional Status * Over the past 2 weeks, how often have you been bothered by any of the following problems?QuestionAnswerDate of AssessmentAuthorLittle interest or pleasure in doing thingsNot at all10/31/2025 9:00 AM Marta Mcdonnell LPN Feeling down, depressed, or hopelessNot at all10/31/2025 9:00 AM Marta Mcdonnell LPNPatient Health Questionnaire-2 Pigpm70801/01/2025 9:00 AM Marta Mcdonnell LPN * QuestionAnswerDate of AssessmentAuthorTrouble falling or staying asleep, or sleeping too muchNot at all10/31/2025 9:00 AM Marta Mcdonnell LPNFeeling tired or having little energyNot at all10/31/2025 9:00 AM Marta Mcdonnell LPNPoor appetite or overeatingNot at all10/31/2025 9:00 AM Marta Mdconnell LPNFeeling bad about yourself - or that you are a failure or have let yourself or your family downNot at all10/31/2025 9:00 AM Marta Mcdonnell LPNTrouble concentrating on things, such as reading the newspaper or watching television Not at all10/31/2025 9:00 AM Marta Mcdonnell LPNMoving or speaking so slowly that other people could have noticed? Or the opposite - being so fidgety or restless that you have been moving around a lot more than usual.Not at all 10/31/2025 9:00 AM Marta Mcdonnell LPNThoughts that you would be better off or hurting yourself in some wayNot at all10/31/2025 9:00 AM Marta Mcdonnell LPNPatient Health Questionnaire-9 Ynvds01401/01/2025 9:00 AM Marta Mcdonnell LPN documented as of this encounter Progress Notes * VIRIDIANA Davison - 10/31/2025 9:30 AM EST Images from the original note were not included. Subjective Patient ID: Daisha Mercer is a 65 y.o. female who presents for Medicare Annual Wellness Visit Initial. Ears are itchy and thinks she might have fungus. Medicare Wellness Over the past 2 weeks, how often have you been bothered by any of the following problems? Little interest or pleasure in doing things: Not at all Feeling down, depressed, or hopeless: Not at all Patient Health Questionnaire-2 Score: 0 Over the past 2 weeks, how often have you been bothered by any of the following problems? Trouble falling or staying asleep, or sleeping too much: Not at all Feeling tired or having little energy: Not at all Poor appetite or overeating: Not at all Feeling bad about yourself - or that you are a failure or have let yourself or your family down: Not at all Trouble concentrating on things, such as reading the newspaper or watching television: Not at all Moving or speaking so slowly that other people could have noticed? Or the opposite - being so fidgety or restless that you have been moving around a lot more than usual.: Not at all Thoughts that you would be better off or hurting yourself in some way: Not at all Patient Health Questionnaire-9 Score: 0 Fernandes Fall Risk History of Falling, Immediate or Within 3 Months: No Health Risk Assessment Form Do you need help eating, bathing, using the toilet, dressing, or getting around your home?: No Can you prepare your own meals?: Yes Can you do your own housework without help?: Yes Can you shop for groceries or clothes without help?: Yes Do you exercise for about 20 minutes 3 or more days a week?: Yes How confident are you that you can control and manage most of your health problems?: Very confident Can you mange your money, credit cards and accounts, pay bills and taxes?: Yes Vision Screening: Yes, no gross abnormalities Hearing Screening: Yes, no gross abnormalities Cognitive Screening Self Assessment: No overt cognitive deficiency is apparent by direct observation Three Word Registration: Denia Wallace, Teresa Clock Drawing: Normal Clock - 2 Three Word Recall: 2/3 words correct - 2 Total Score (0-5 Points): 4 Pain Assessment Pain Score: 2 Advance Care Planning Do you have a living will?: No (paperwork given for living will) Do you have a medical power of retail business manager?: No Current Outpatient Medications on File Prior to Visit Medication Sig Dispense Refill amphetamine-dextroamphetamine (Adderall) 30 MG tablet Take 1 tablet (30 mg) by mouth in the morningand 1 tablet (30 mg) before bedtime. 60 tablet 0 clotrimazole-betamethasone (Lotrisone) cream Apply topically 2 (two) times a day. diclofenac (Voltaren) 50 MG EC tablet Take 50 mg by mouth in the morning and 50 mg before bedtime. estradiol (Estrace) 1 MG tablet Take 1 tablet (1 mg) by mouth Daily 30 tablet 5 levothyroxine (Synthroid, Levoxyl) 112 MCG tablet Take 1 tablet (112 mcg) by mouth in the morning. Take before meals. 100 tablet 3 Semaglutide,0.25 or 0.5MG/DOS, (Ozempic, 0.25 or 0.5 MG/DOSE,) 2 MG/3ML solution pen-injector Inject 0.5 mg under the skin 1 (one) time per week 3 mL 3 tiZANidine (Zanaflex) 4 MG tablet Take 1 tablet (4 mg) by mouth as needed at bedtime for muscle spasms 30 tablet 0 No current facility-administered medications on file prior to visit. I have reviewed and reconciled the history and medication list with the patient today. No Known Allergies Social History Tobacco Use Smoking status: Former Current packs/day: 0.00 Average packs/day: 1 pack/day for 36.2 years (36.2 ttl pk-yrs) Types: Cigarettes Start date: 11/29/1977 Quit date: 01/29/2014 Years since quittin.7 Smokeless tobacco: Never Vaping Use Vaping status: Never Used Substance Use Topics Alcohol use: Never Drug [...] Diagnosis Date ADHD (attention deficit hyperactivity disorder) 2018 Cataract 2020 Diabetes mellitus (HCC) 2013 Disease of thyroid gland 1996 Tubular adenoma of rectum 08/01/2025 Varicella 1970 Visual impairment Past Surgical History: Procedure Laterality Date EYE SURGERY 2020 HYSTERECTOMY 1999 TUBAL LIGATION 1996 Visit Vitals BP 126/82 Pulse 74 Resp 16 Ht 5' 4 Wt 142 lb 12.8 oz SpO2 99% BMI 24.51 kg/m?? Smoking Status Former BSA 1.71 m?? Review of Systems Constitutional: Negative for chills, fatigue and fever. HENT: Negative for congestion, ear pain, rhinorrhea and sore throat. Itchy ears Eyes: Negative for pain, discharge and visual disturbance. Respiratory: Negative for cough, shortness of breath and wheezing. Cardiovascular: Negative for chest pain, palpitations and leg swelling. Gastrointestinal: Negative for abdominal pain, constipation, diarrhea, nausea and vomiting. Genitourinary: Negative for difficulty urinating, dysuria and frequency. Musculoskeletal: Negative for arthralgias and back pain. Left sciatic pain - stable Skin: Negative for rash. Neurological: Negative for dizziness and numbness. Psychiatric/Behavioral: Negative for sleep disturbance. The patient is not nervous/anxious. Objective Physical Exam Constitutional: General: She is not in acute distress. Appearance: Normal appearance. She is well-developed. HENT: Head: Normocephalic and atraumatic. Right Ear: Tympanic membrane normal. Left Ear: Tympanic membrane normal. Ears: Comments: Bilateral ear canals with mildly erythematous skin, mild swelling on left, dry flaky skin. Dry skin on pinnas also Nose: Nose normal. Mouth/Throat: Mouth: Mucous membranes are moist. Pharynx: No posterior oropharyngeal erythema. Eyes: General: No scleral icterus. Extraocular Movements: Extraocular movements intact. Conjunctiva/sclera: Conjunctivae normal. Pupils: Pupils are equal, round, and reactive to light. Neck: Vascular: No carotid bruit. Cardiovascular: Rate and Rhythm: Normal rate and regular rhythm. Heart sounds: Normal heart sounds. No murmur heard. Pulmonary: Effort: Pulmonary effort is normal. No respiratory distress. Breath sounds: Normal breath sounds. No wheezing, rhonchi or rales. Abdominal: General: Bowel sounds are normal. There is no distension. Palpations: Abdomen is soft. Tenderness: There is no abdominal tenderness. There is no guarding. Musculoskeletal: General: No swelling or deformity. Normal range of motion. Cervical back: Normal range of motion and neck supple. No tenderness. Skin: General: Skin is warm and dry. Capillary Refill: Capillary refill takes less than 2 seconds. Findings: No rash. Neurological: General: No focal deficit present. Mental Status: She is alert and oriented to person, place, and time. Cranial Nerves: No cranial nerve deficit. Sensory: No sensory deficit. Motor: No weakness. Gait: Gait normal. Deep Tendon Reflexes: Reflexes normal. Psychiatric: Mood and Affect: Mood normal. Behavior: Behavior normal. Thought Content: Thought content normal. Judgment: Judgment normal. Assessment & Plan 1. Medicare annual wellness visit, initial (Primary) Reviewed all relevant preventative screenings with the patient in detail. Medicare Wellness form completed and will be scanned into patient's chart. All needed testing was ordered. Will continue withyearly Medicare Wellness exams. - HEPATITIS C AB W/RFL RNS, PCR W/RFL GENOTYPE,LIPA 2. ACP (advance care planning) Patient agreed to discuss advance care planning at today's wellness visit. We discussed that an advance directive is a legal document that only goes into effect if the patient is incapacitated and unable to speak for himself or herself. This would help healthcare providers to ensure that the patient gets the care that he or she wishes to receive. The goal is to provide a patient with the best possible quality of life. Encouraged patient to obtain a living will and durable power of retail business manager for healthcare. We discussed telling ordoñez people about their advance directives such as close family members, and requested a copy to scan into the patient's EHR. An advance directive packet was offered to the patient. 3. Encounter for screening mammogram for malignant neoplasm of breast Provided patient with an order for an updated Mammogram. If results are negative/normal, will plan to continue with routine yearly screenings. - Bilateral screening mammogram with tomosynthesis; Future 4. Estrogen deficiency This is a chronic medical condition that is stable since last assessment. Will monitor with routinepreventative screenings. - DEXA bone density; Future 5. Former smoker The patient was counseled on the importance of maintaining cigarette smoking abstinence. The patient continues to refrain from smoking and is committed to avoiding tobacco use. - CT lung screening low dose; Future 6. Benign essential hypertension Patient's blood pressure is currently within normal range without medication. Will continue to monitor. . 7. Type 2 diabetes mellitus without complication, without long-term current use of insulin ([facility]) HgbA1c on 08/01/2025 was well controlled at 5.1. Continue Ozempic as prescribed. Will recheck A1c in three months. 8. Hypothyroidism, iatrogenic This is a chronic medical condition that is stable since last assessment. No changes in treatment are suggested at this time. Continue Levothyroxine as prescribed. Will monitor with routine labs. 9. Myalgia This is a chronic medical condition that is stable since last assessment. No changes in treatment are suggested at this time. Continue Tizanidine and Voltaren as prescribed. 10. Other problems related to lifestyle Patient was born in 1959. She is agreeable to Hep C screening. - HEPATITIS C AB W/RFL RNS, PCR W/RFL GENOTYPE,LIPA 11. Chronic interstitial cystitis This is a chronic medical condition that is stable since last assessment. No treatment needed at this time. Will continue to monitor. 12. History of hysterectomy Pt is s/p hysterectomy. Denies concerns at this time. 13. History of thyroidectomy, total This is a chronic medical condition that is stable since last assessment. No changes in treatment are suggested at this time. Continue Levothyroxine as prescribed. Will monitor with routine labs. 14. Lumbar disc narrowing This is a chronic medical condition that is stable since last assessment. No changes in treatment are suggested at this time. Continue Tizanidine and Voltaren as prescribed. 15. Sciatica of left side This is a chronic medical condition that is stable since last assessment. No changes in treatment are suggested at this time. Continue Tizanidine and Voltaren as prescribed. 16. Attention deficit hyperactivity disorder (ADHD), predominantly inattentive type Medication choice and dosage is appropriate for patient's current medical conditions. Patient will continue to be required to be seen in our office at least every three months for monitoring. At eachfollow up visit I will reassess the patient's need for the medication. Patient is to have this medication prescribed only through this office. Failure to follow the rules and regulations will result in tapering and discontinuation of medications if applicable. Patient verbalized understanding. OARRS Report was reviewed for this patient. 17. Hormone replacement therapy This is a chronic medical condition that is stable since last assessment. No changes in treatment are suggested at this time. Continue Estrace as prescribed. 18. Sigmoid diverticulosis The patient is seeing a director medical safety for this condition, treatment is deferred to that specialist. Correspondence from that specialist and any available testing were reviewed during today's visit. No current symptoms. Saw Dr. Mason. 19. Seborrheic dermatitis Start Cortisporin Otic as prescribed. Reviewed instructions for application. She can contact officeif symptoms do not gradually improve. - qgjqlotp-ldivzpvgf-bvmzhgnocvayhq (Cortisporin) 3.5-91526-0 otic suspension; Administer 3 drops into each ear in the morning and 3 drops at noon and 3 drops in the evening and 3 drops before bedtime. Do all this for [address] in affected ear. Dispense: 10 mL; Refill: 1 20. Encounter for immunization Provided pt with a Influenza shot today. She tolerated this well. Recommend pneumonia vaccine and RSV vaccine at pharmacy at patient's convenience. Potential risks/benefits of immunizations discussed. - Flu vaccine, high dose seasonal, PF (CBM564) (Fluzone High Dose) 21. Abnormal electrocardiogram Electrocardiogram completed in the office today and interpretation reviewed by Dr. Roberto Mcclure. Showed, Sinus rhythm with sinus arrhythmia, possible left atrial enlargement, RSR in V1/V2 consistentwith right ventricular conduction delay. Results reviewed with pt. - Transthoracic Echo (TTE) Complete; Future 22. Left atrial enlargement Electrocardiogram showed potential for left atrial enlargement. If present, this would place the patient at an increased risk for Atrial Fibrillation. Will evaluate further with ECHO. She will have [facility] done at [facility]. - Transthoracic Echo (TTE) Complete; Future Follow up with VIRIDIANA Carmen or their team in 3 months (on 01/29/2026 Medication Follow Up). Anita ROSS, PAAdaliC documented in this encounter Plan of Treatment DateTypeDepartmentCare Team (Latest Contact Info)Zkotsewiwbs87/03/2026 10:00 AM ESTOffice Visit [facility] [address] [facility] [address] [place] [address] Anita Reed PA [address] [facility] [address] [place] [address] NameTypePriorityAssociated DiagnosesOrder ScheduleBilateral screening mammogram with tomosynthesisImagingRoutine Encounter for screening mammogram for malignant neoplasm of breast Expected: 02/15/2026, Expires: 01/01/2027DEXA bone densityImagingRoutine Estrogen deficiency Expected: 10/31/2025, Expires: 10/31/2026T lung screening low doseImaging Routine Former smoker Expected: 10/31/2025, Expires: 10/31/2026Transthoracic Echo (TTE) Complete EchocardiographyRoutine Benign essential hypertension Abnormal electrocardiogram Left atrial enlargement Expected: 10/31/2025 (Approximate), Expires: 10/31/2027documented as of this encounter Procedures Procedure NamePriorityDate/TimeAssociated DiagnosisCommentsHEPATITIS C AB W/RFL RNS, PCR W/RFL GENOTYPE,UCYVDsiqmml43/03/2025 10:21 AM EST Medicare annual wellness visit, initial Other problems related to lifestyle documented in this encounter Results * HEPATITIS C AB W/RFL RNS, PCR W/RFL GENOTYPE,LIPA (10/31/2025 10:21 AM EST) ComponentValueRef RangeTest MethodAnalysis TimePerformed AtPathologist SignatureHEPATITIS C ANTIBODYNonreactiveQUESTComment: HCV antibody was non-reactive. There is no laboratory evidence of HCV infection. In most cases, no further action is required. However, if recent HCV exposure is suspected, a test for HCV RNA (test code 12560) is suggested. REFERENCE RANGE: NONREACTIVE For additional information, please refer to http://education.Go!Foton.Project Playlist/faq/UQV516 (This link is being provided for informational/ educational purposes only.) Specimen (Source)Anatomical Location / LateralityCollection Method / Volume Collection TimeReceived Time10/31/2025 10:21 AM EST10/31/2025 10:21 AM EST Narrative Resulting Agency Comment Performing Organization Information ?Site ID: [facility] ?Name: [facility] ?Address: [address] [place] [address] [place] ?Director: Charly Matias M.D.,PhD Authorizing ProviderResult TypeResult StatusAnita Sarmiento Hemaidan PALAB BLOOD ORDERABLESFinal ResultPerforming OrganizationAddressCity/State/ZIP CodePhone Number [facility] documented in this encounter Visit Diagnoses Diagnosis Medicare annual wellness visit, initial- Primary ACP (advance care planning) Other specified counseling Encounter for screening mammogram for malignant neoplasm of breast Estrogen deficiency Other ovarian failure Former smoker Personal history of tobacco use, presenting hazards to health Benign essential hypertension Essential hypertension, benign Type 2 diabetes mellitus without complication, without long-term current use of insulin (HCC) Hypothyroidism, iatrogenic Other iatrogenic hypothyroidism Myalgia Unspecified myalgia and myositis Other problems related to lifestyle Chronic interstitial cystitis History of hysterectomy Acquired absence of both cervix and uterus History of thyroidectomy, total Lumbar disc narrowing Degeneration of lumbar or lumbosacral intervertebral disc Sciatica of left side Attention deficit hyperactivity disorder (ADHD), predominantly inattentive type Hormone replacement therapy Sigmoid diverticulosis Seborrheic dermatitis Unspecified seborrheic dermatitis Encounter for immunization Abnormal electrocardiogram Nonspecific abnormal electrocardiogram (ECG) (EKG) Left atrial enlargement Cardiomegaly documented in this encounter Additional Health Concerns AssessmentNoted TimePHQ-9 Depression Total Score: 9:00 AM EST documented as of this encounter Care Teams Team MemberRelationshipSpecialtyStart DateEnd Date Roberto Mcclure MD [address] [place] [address] PCP - GeneralInternal Medicine04/12/23documented as of this encounter
--- OUTSIDE RECORDS SUMMARY | 2025-11-12 07:54 | XMS_ITS | Encounter Summary ---
Author Organization [facility] Address [address] [facility] [place] [address] Care Team Providers Care Body Technician/Painter Name Role Phone Roberto Mcclure MD Primary Care Provider [phone] Encounter Details DateTypeDepartmentCare Team (Latest Contact Info)Akzryqsbcrm19/03/2025amboo flowsheet [facility] [place] [facility] [address] [place] [address] Anita Reed PA [address] [place] [address] [place] [address] Social History Tobacco UseTypesPacks/DayYears UsedDateSmoking Tobacco: FdhmanVikwnjztjf134.2 11/29/1977 - 01/29/2014Smokeless Tobacco: NeverAlcohol UseStandard Drinks/Week [...] relatives?Twice a week08/01/2025How often do you attend holiness or christian services?More than 4 times per year08/01/2025Do you belong to any clubs or organizations such as holiness groups, unions, fraternal or athletic groups, or school groups?Yes08/01/2025How often do you attend meetings of the clubs or organizations you belong to?More than 4 times per year08/01/2025 Are you , , , , never , or living with a partner?Yutdcvo9008/01/2025UDIT-CAnswerDate RecordedQ1: How often do you have a [...] heating?Not hard at all08/01/2025PHQ-2AnswerDate RecordedPatient Health Questionnaire-2 Krtyc30401/01/2025[facility] [place] of Occupational Health - Occupational Stress QuestionnaireAnswerDate [...] steady place to sleep or slept in [facility] (including now)?No 05/19/2023Housing Stability Vital SignAnswerDate RecordedIn the last 12 months, was there a time when you were not able to pay the mortgage or rent on time?No 08/01/2025In the past 12 months, how many times have you moved where you were living?t any time in the past 12 months, were you homeless or living in a long term (including now)?No08/01/2025CommentsUnknownSex and Gender InformationValueDate RecordedSex Assigned at BirthNot on fileLegal SexFemale 02/10/2023 7:12 PM EDTGender IdentityNot on fileSexual OrientationNot on file documented as of this encounter Functional Status * Over the past 2 weeks, how often have you been bothered by any of the following problems?QuestionAnswerDate of AssessmentAuthorLittle interest or pleasure in doing thingsNot at all10/31/2025 9:00 AM Marta Mcdonnell LPN Feeling down, depressed, or hopelessNot at all10/31/2025 9:00 AM Marta Mcdonnell LPNPatient Health Questionnaire-2 Dvnfs06501/01/2025 9:00 AM Marta Mcdonnell LPN * QuestionAnswerDate of AssessmentAuthorTrouble falling or staying asleep, or sleeping too muchNot at all10/31/2025 9:00 AM Marta Mcdonnell LPNFeeling tired or having little energyNot at all10/31/2025 9:00 AM Marta Mcdonnell LPNPoor appetite or overeatingNot at all10/31/2025 9:00 AM Marta Mcdonnell LPNFeeling bad about yourself - or that you are a failure or have let yourself or your family downNot at all10/31/2025 9:00 AM Marta Mcdonnell LPNTrouthu concentrating on things, such as reading the [...] 9:00 AM Marta Mcdonnell LPNPatient Health Questionnaire-9 Wfkma54301/01/2025 9:00 AM Marta Mcdonnell LPN documented as of this encounter Plan of Treatment DateTypeDepartmentCare Team (Latest Contact Info)Jcczghlgqqq99/03/2026 10:00 AM ESTOffice Visit [facility] [place] [facility] [address] [place] [phone] Anita Reed PA [address] [place] [address] documented as of this encounter Visit Diagnoses Not on filedocumented in this encounter Additional Health Concerns AssessmentNoted TimePHQ-9 Depression Total Score: 9:00 AM EST documented as of this encounter Care Teams Team MemberRelationshipSpecialtyStart DateEnd Date Roberto Mcclure MD [address] [address] PCP - GeneralInternal Medicine04/12/23documented as of this encounter
--- OUTSIDE RECORDS SUMMARY | 2025-11-12 07:54 | XMS_ITS | Encounter Summary ---
Author Organization [facility] Address [address] [facility] [place] [address] Care Team Providers Care Allergist Immunologist Name Role Phone Roberto Mcclure MD Primary Care Provider [phone] Encounter Details DateTypeDepartmentCare Team (Latest Contact Info)Vyiykfulcil63/03/2025bstract [facility] [place] [facility] [address] [place] [phone] Roberto Mcclure MD [address] [place] [address] Social History Tobacco UseTypesPacks/DayYears UsedDateSmoking Tobacco: AqsfemSiclwxytey410.2 11/29/1977 - 01/29/2014Smokeless Tobacco: NeverAlcohol UseStandard Drinks/Week [...] relatives?Twice a week08/01/2025How often do you attend confucianist or oriental orthodox services?More than 4 times per year08/01/2025Do you belong to any clubs or organizations such as confucianist groups, unions, fraternal or athletic groups, or school groups?Yes08/01/2025How often do you attend meetings of the clubs or organizations you belong to?More than 4 times per year08/01/2025 Are you , , , , never , or living with a partner?Kdyypaw8608/01/2025UDIT-CAnswerDate RecordedQ1: How often do you have a [...] heating?Not hard at all08/01/2025PHQ-2AnswerDate RecordedPatient Health Questionnaire-2 Krzck29101/01/2025[facility] [place] of Occupational Health - Occupational Stress QuestionnaireAnswerDate [...] steady place to sleep or [facility])?No 05/19/2023Housing Stability Vital SignAnswerDate RecordedIn the last 12 months, was there a time when you were not able to pay the mortgage or rent on time?No 08/01/2025In the past 12 months, how many times have you moved where you were living?t any time in the past 12 months, were you homeless or living in a alf (including now)?No08/01/2025CommentsUnknownSex and Gender InformationValueDate RecordedSex Assigned at BirthNot on fileLegal SexFemale 02/10/2023 7:12 PM EDTGender IdentityNot on fileSexual OrientationNot on file documented as of this encounter Functional Status * Over the past 2 weeks, how often have you been bothered by any of the following problems?QuestionAnswerDate of AssessmentAuthorLittle interest or pleasure in doing thingsNot at all10/31/2025 9:00 AM Marta Mcdonnell, MEDICAL CLAIMS ANALYST Feeling down, depressed, or hopelessNot at all10/31/2025 9:00 AM Marta Mcdonnell LPNPatient Health Questionnaire-2 Psmft07301/01/2025 9:00 AM Marta Mcdonnell LPN * QuestionAnswerDate [...] 9:00 AM Marta Mcdonnell LPNPatient Health Questionnaire-9 Fomge67501/01/2025 9:00 AM Marta Mcdonnell LPN documented as of this encounter Plan of Treatment DateTypeDepartmentCare Team (Latest Contact Info)Ibwngcmyyxe27/03/2026 10:00 AM ESTOffice Visit [facility] [place] [facility] [address] [facility] [address] [place] [address] Anita Reed PA [address] [place] [address] documented as of this encounter Visit Diagnoses Not on filedocumented in this encounter Additional Health Concerns AssessmentNoted TimePHQ-9 Depression Total Score: 9:00 AM EST documented as of this encounter Care Teams Team MemberRelationshipSpecialtyStart DateEnd Date Roberto Mcclure MD [address] [address] PCP - GeneralInternal Medicine04/12/23documented as of this encounter
--- OUTSIDE RECORDS SUMMARY | 2025-11-12 07:54 | XMS_ITS | Encounter Summary ---
Author Organization [facility] Address [address] [facility] [place] [address] Care Team Providers Care Space Systems Operations Craftsman Name Role Phone Roberto Mcclure MD Primary Care Provider [phone] Encounter Details DateTypeDepartmentCare Team (Latest Contact Info)Cdmqoxjaaii39/04/2025bstract [facility] [place] [facility] [address] [place] [phone] Roberto Mcclure MD [address] [place] [address] Social History Tobacco UseTypesPacks/DayYears UsedDateSmoking Tobacco: HkfufbVhdyrctdzh798.2 11/29/1977 - 01/29/2014Smokeless Tobacco: NeverAlcohol UseStandard Drinks/Week [...] relatives?Twice a week08/01/2025How often do you attend anabaptism or cheondoism services?More than 4 times per year08/01/2025Do you belong to any clubs or organizations such as anabaptism groups, unions, fraternal or athletic groups, or school groups?Yes08/01/2025How often do you attend meetings of the clubs or organizations you belong to?More than 4 times per year08/01/2025 Are you , , , , never , or living with a partner?Xlfxzlf3108/01/2025UDIT-CAnswerDate RecordedQ1: How often do you have a [...] heating?Not hard at all08/01/2025PHQ-2AnswerDate RecordedPatient Health Questionnaire-2 Ppabl92701/01/2025[facility] [place] of Occupational Health - Occupational Stress QuestionnaireAnswerDate [...] steady place to sleep or slept in [facility] (including now)?No 05/19/2023Housing Stability Vital SignAnswerDate RecordedIn the last 12 months, was there a time when you were not able to pay the mortgage or rent on time?No 08/01/2025In the past 12 months, how many times have you moved where you were living?t any time in the past 12 months, were you homeless or living in a [facility] (including now)?No08/01/2025CommentsUnknownSex and Gender InformationValueDate RecordedSex Assigned at BirthNot on fileLegal SexFemale 02/10/2023 7:12 PM EDTGender IdentityNot on fileSexual OrientationNot on file documented as of this encounter Plan of Treatment DateTypeDepartmentCare Team (Latest Contact Info)Wdghocdfxuz41/03/2026 10:00 AM ESTOffice Visit [facility] [place] [facility] [address] [email or web address] [address] [place] [address] Anita Reed PA [address] [facility] 110 [place] [address] documented as of this encounter Visit Diagnoses Not on filedocumented in this encounter Additional Health Concerns AssessmentNoted TimePHQ-9 Depression Total Score: 9:00 AM EST documented as of this encounter Care Teams Team MemberRelationshipSpecialtyStart DateEnd Date Roberto Mcclure MD 112 [facility] 110 [place] [address] PCP - GeneralInternal Medicine04/12/23documented as of this encounter
--- OUTSIDE RECORDS SUMMARY | 2025-11-12 07:54 | XMS_ITS | Encounter Summary ---
Author Organization [facility] Address [address] [facility] [place] [address] Care Team Providers Care Volunteer Services Manager Name Role Phone Roberto Mcclure MD Primary Care Provider Encounter Details DateTypeDepartmentCare Team (Latest Contact Info)Oqmzupskeii02/03/2025Travel Social History Tobacco UseTypesPacks/DayYears UsedDateSmoking Tobacco: KujbseIpbzadnxcr317.2 11/29/1977 - 01/29/2014Smokeless Tobacco: NeverAlcohol UseStandard Drinks/Week [...] relatives?Twice a week08/01/2025How often do you attend mandaeism or scientology services?More than 4 times per year08/01/2025Do you belong to any clubs or organizations such as mandaeism groups, unions, fraternal or athletic groups, or school groups?Yes08/01/2025How often do you attend meetings of the clubs or organizations you belong to?More than 4 times per year08/01/2025 Are you , , , , never , or living with a partner?Zcimrwt0508/01/2025UDIT-CAnswerDate RecordedQ1: How often do you have a [...] heating?Not hard at all08/01/2025PHQ-2AnswerDate RecordedPatient Health Questionnaire-2 Xjreg01901/01/2025[facility] [place] of Occupational Health - Occupational Stress QuestionnaireAnswerDate [...] steady place to sleep or slept in [facility] (including now)?No 05/19/2023Housing Stability Vital SignAnswerDate RecordedIn the last 12 months, was there a time when you were not able to pay the mortgage or rent on time?No 08/01/2025In the past 12 months, how many times have you moved where you were living?t any time in the past 12 months, were you homeless or living in a jail (including now)?No08/01/2025CommentsUnknownSex and Gender InformationValueDate RecordedSex Assigned [...] 9:00 AM Marta Mcdonnell LPNPatient Health Questionnaire-2 Zswrt97901/01/2025 9:00 AM Marta Mcdonnell LPN * QuestionAnswerDate [...] 9:00 AM Marta Mcdonnell LPNPatient Health Questionnaire-9 Zpjtx75401/01/2025 9:00 AM Marta Mcdonnell LPN documented as of this encounter Plan of Treatment DateTypeDepartmentCare Team (Latest Contact Info)Tszgufetzby12/03/2026 10:00 AM ESTOffice Visit [facility] [place] [facility] [address] [place] [address] Anita Reed PA [address] [place] [address] documented as of this encounter Visit Diagnoses Not on filedocumented in this encounter Additional Health Concerns AssessmentNoted TimePHQ-9 Depression Total Score: 9:00 AM EST documented as of this encounter Care Teams Team MemberRelationshipSpecialtyStart DateEnd Date Roberto Mcclure MD [address] [place] [address] PCP - GeneralInternal Medicine04/12/23documented as of this encounter
--- OUTSIDE RECORDS SUMMARY | 2025-11-12 07:54 | XMS_ITS | Encounter Summary ---
Author Organization [facility] Address [address] [facility] [place] [address] Care Team Providers Care Dispensary Attendant Name Role Phone Roberto Mcclure MD Primary Care Provider [phone] Encounter Details DateTypeDepartmentCare Team (Latest Contact Info)Yimexvtqjvk34/12/2025Telephone [facility] [place] [facility] [address] [place] [phone] Roberto Mcclure MD [address] [place] [place] [address] Social History Tobacco UseTypesPacks/DayYears UsedDateSmoking Tobacco: AyfslnQnuleeesqo959.2 11/29/1977 - 01/29/2014Smokeless Tobacco: NeverAlcohol UseStandard Drinks/Week [...] relatives?Twice a week08/01/2025How often do you attend amish or hinduism services?More than 4 times per year08/01/2025Do you belong to any clubs or organizations such as amish groups, unions, fraternal or athletic groups, or school groups?Yes08/01/2025How often do you attend meetings of the clubs or organizations you belong to?More than 4 times per year08/01/2025 Are you , , , , never , or living with a partner?Wwkupya4008/01/2025UDIT-CAnswerDate RecordedQ1: How often do you have a [...] heating?Not hard at all08/01/2025PHQ-2AnswerDate RecordedPatient Health Questionnaire-2 Kdtfz18201/01/2025[facility] [place] of Occupational Health - Occupational Stress QuestionnaireAnswerDate [...] steady place to sleep or slept in [facility] (including now)?No 05/19/2023Housing Stability Vital SignAnswerDate RecordedIn the last 12 months, was there a time when you were not able to pay the mortgage or rent on time?No 08/01/2025In the past 12 months, how many times have you moved where you were living?t any time in the past 12 months, were you homeless or living in a correction (including now)?No08/01/2025CommentsUnknownSex and Gender InformationValueDate RecordedSex Assigned at BirthNot on fileLegal SexFemale 02/10/2023 7:12 PM EDTGender IdentityNot on fileSexual OrientationNot on file documented as of this encounter Miscellaneous Notes * Telephone Encounter - CRISS MATRINEZ - 11/09/2025 12:18 PM EST Order faxed * Telephone Encounter - Shahnaz Fajardo - 11/09/2025 8:26 AM EST Message from [facility]. They are looking for an order from Anita Reed for a Low Dose Lung Screening Cat Scan. Fax to [phone] Torito [phone] Ext [phone] documented in this encounter Plan of Treatment DateTypeDepartmentCare Team (Latest Contact Info)Fombczbqqav25/03/2026 10:00 AM ESTOffice Visit [facility] [place] [facility] [address] [place] [address] Anita Reed PA [address] [place] [address] documented as of this encounter Visit Diagnoses Not on filedocumented in this encounter Additional Health Concerns AssessmentNoted TimePHQ-9 Depression Total Score: 9:00 AM EST documented as of this encounter Care Teams Team MemberRelationshipSpecialtyStart DateEnd Date Roberot Mcclure MD [address] [place] [address] PCP - GeneralInternal Medicine04/12/23documented as of this encounter
--- OUTSIDE RECORDS SUMMARY | 2025-11-12 07:54 | XMS_ITS | Encounter Summary ---
Author Organization [facility] Address [address] [facility] [place] [address] Care Team Providers Care Aging Room Operator Name Role Phone Roberto Mcclure MD Primary Care Provider [phone] Encounter Details DateTypeDepartmentCare Team (Latest Contact Info)Cnbyinyfwtf61/04/2025bstract [facility] [place] [facility] [address] [place] [phone] Roberto Mcclure MD [address] [place] [place] [address] Social History Tobacco UseTypesPacks/DayYears UsedDateSmoking Tobacco: HcygfzUximprvqrb599.2 11/29/1977 - 01/29/2014Smokeless Tobacco: NeverAlcohol UseStandard Drinks/Week [...] relatives?Twice a week08/01/2025How often do you attend hoahaoism or baptism services?More than 4 times per year08/01/2025Do you belong to any clubs or organizations such as hoahaoism groups, unions, fraternal or athletic groups, or school groups?Yes08/01/2025How often do you attend meetings of the clubs or organizations you belong to?More than 4 times per year08/01/2025 Are you , , , , never , or living with a partner?Ifrgscn1208/01/2025UDIT-CAnswerDate RecordedQ1: How often do you have a [...] heating?Not hard at all08/01/2025PHQ-2AnswerDate RecordedPatient Health Questionnaire-2 Cvhyl70601/01/2025[facility] [place] of Occupational Health - Occupational Stress QuestionnaireAnswerDate [...] steady place to sleep or slept in [facility] (including now)?No 05/19/2023Housing Stability Vital SignAnswerDate RecordedIn the last 12 months, was there a time when you were not able to pay the mortgage or rent on time?No 08/01/2025In the past 12 months, how many times have you moved where you were living?t any time in the past 12 months, were you homeless or living in a [facility] (including now)?No08/01/2025CommentsUnknownSex and Gender InformationValueDate RecordedSex Assigned at BirthNot on fileLegal SexFemale 02/10/2023 7:12 PM EDTGender IdentityNot on fileSexual OrientationNot on file documented as of this encounter Plan of Treatment DateTypeDepartmentCare Team (Latest Contact Info)Lljyivshcja34/03/2026 10:00 AM ESTOffice Visit [facility] [place] [facility] [address] [facility] 110 [place] [address] Anita Reed PA [address] [facility] 110 [place] [address] documented as of this encounter Visit Diagnoses Not on filedocumented in this encounter Additional Health Concerns AssessmentNoted TimePHQ-9 Depression Total Score: 9:00 AM EST documented as of this encounter Care Teams Team MemberRelationshipSpecialtyStart DateEnd Date Roberto Mcclure MD 112 [facility] 110 [place] [address] PCP - GeneralInternal Medicine04/12/23documented as of this encounter
--- NOTE | 2025-11-12 07:55 | CT_ITS ---
The [address] [address] Patient Name: BROOKLYNN KAISER MRN: [id number] date: 1960 Sex: F Assigned Patient Location: CARD Current Patient Location: CARD Accession/Order Number: [id number] Exam Date: 11/12/2025 08:38 Report Date: 11/12/2025 10:26 At the request of: DELROY ROCHA Procedure: CT lung screening low-dose LOW-DOSE SCREENING CHEST CT WITHOUT CONTRAST COMPARISON: None CLINICAL DATA: Former smoker with 35 pack year history. Spiral axial unenhanced low-dose images were obtained through the chest. Images were reviewed using both narrow and wide window settings. This CT exam was performed using one or more following dose reduction techniques: Automated exposure control, adjustment of the mA and/or kV according to patient size, or use of iterative reconstruction technique. The heart is within normal limits for size. No pericardial effusion is seen. No aortic aneurysm is noted. There are small scattered mediastinal lymph nodes which are not pathologic by size. Slight reverse S-shaped scoliotic curvature is present at the spine. There are some airspace lucencies compatible with obstructive lung disease. Minor apical scarring is present. There is also minimal scarring or atelectasis at the lower lungs. No consolidation, pleural effusion or pneumothorax is identified. There are a couple soft tissue nodules at the left lateral (8 - 9 mm on coronal image 17) and posterior lateral costophrenic angle (5 - 6 mm). No pulmonary nodularity is seen on the right. Limited imaging through the upper abdomen shows no contributory findings. CT/CT lung screening low-dose IMPRESSION: OBSTRUCTIVE LUNG DISEASE WITH MINIMAL SCARRING AND/OR ATELECTASIS. LEFT LOWER LOBE PULMONARY NODULARITY, DESCRIBED. Lung RADS category 4A - probably suspicious [address] follow-up is suggested. Impression dictated by: Delroy Ferrer M.D. 11/12/2025 10:26 AM Dictation Location: [place] [address] Electronically authenticated by: [id number] Y Date: 11/12/2025 10:26
--- OUTSIDE RECORDS SUMMARY | 2025-11-12 07:55 | XMS_ITS | Clinical Summary ---
Author Organization [facility] Address [address] [place] [address] Care Team Providers Care Geospatial Program Management Officer Name Role Phone Roberto Mcclure MD Primary Care Provider [phone] Allergies No known active allergies Medications MedicationSigDispense QuantityRefillsLast FilledStart DateEnd DateStatus clotrimazole-betamethasone (Lotrisone) cream Apply topically 2 (two) times a day.Active diclofenac (Voltaren) 50 MG EC tablet Take 50 mg by mouth in the morning and 50 mg before bedtime.Active tiZANidine (Zanaflex) 4 MG tablet Indications:Sciatica of left sideTake 1 tablet (4 mg) by mouth as needed at bedtime for muscle spasms 30 tablet 4Active levothyroxine (Synthroid, Levoxyl) 112 MCG tablet Indications:Hypothyroidism, iatrogenicTake 1 tablet (112 mcg) by mouth in the morning. Take before meals. 100 tablet 5Active estradiol (Estrace) 1 MG tablet Indications:Hot flashesTake 1 tablet (1 mg) by mouth Daily 30 tablet 5Active Semaglutide,0.25 or 0.5MG/DOS, (Ozempic, 0.25 or 0.5 MG/DOSE,) 2 MG/3ML solution pen-injector Indications:Type 2 diabetes mellitus without complication, without long-term current use of insulin (HCC)Inject 0.5 mg under the skin 1 (one) time per week 3 mL 5Active amphetamine-dextroamphetamine (Adderall) 30 MG tablet Indications:Attention deficit hyperactivity disorder (ADHD), predominantly inattentive typeTake 1 tablet (30 mg) by mouth in the morning and 1 tablet (30 mg) before bedtime. 60 tablet 5Active Semaglutide,0.25 or 0.5MG/DOS, (Ozempic, 0.25 or 0.5 MG/DOSE,) 2 MG/3ML solution pen-injector Indications:Type 2 diabetes mellitus without complication, without long-term current use of insulin (HCC)Inject 0.5 mg under the skin 1 (one) time per week Discontinued(Reorder) amphetamine-dextroamphetamine (Adderall) 30 MG tablet Indications:Attention deficit hyperactivity disorder (ADHD), predominantly inattentive typeTake 1 tablet (30 mg) by mouth in the morning and 1 tablet (30 mg) before bedtime. 60 tablet Discontinued(Reorder) ycdhyhrj-cufogcnlw-qdgacexurgdoaf (Cortisporin) 3.5-39998-5 otic suspension Indications:Seborrheic dermatitisAdminister 3 drops into each ear in the morning and 3 drops at noon and 3 drops in the evening and 3 drops before bedtime. Do all this for [address] in affected ear. 10 mL Expired Active Problems ProblemNoted DateDiagnosed DateSigmoid /03/2025Hormone replacement zmiwkve9807/27/2025ttention deficit hyperactivity disorder (ADHD), predominantly inattentive type09/23/2024Type 2 diabetes mellitus without complication, without long-term current use of cafksdp9707/19/2024hronic interstitial odrfklgw82/11/2023History of nuhgaffrsqhi51/11/2023History of thyroidectomy, total04/08/2023Hypothyroidism, hjglxnmint09/11/2023Lumbar disc tifchkobk60/11/6054Aziybud44/11/4365Bbsauror81/11/2023enign essential qsvvvpafdbia12/26/2008 Resolved Problems ProblemNoted DateDiagnosed DateResolved DateTubular adenoma of nzjybi5208/01/2025 08/01/2025ttention or concentration zosrxka29/26/106114/26/2024IGT (impaired glucose tolerance)/01/2025Otitis wnviekq59/05/2025 Encounters DateTypeDepartmentCare BpkqTzjcpgbicgw63/12/2025Telephone [facility] [address] [facility] [address] [place] [address] Roberto Mcclure MD 11/01/2025bstract [facility] [address] [facility] [address] [place] [address] Roberto Mcclure MD 11/01/2025bstract [facility] [place] [facility] [address] [facility] [address] [place] [address] Roberto Mcclure MD 10/31/2025 9:30 AM ESTOffice Visit [facility] [place] Last [facility] [address] [facility] [address] [place] [address] Anita Rocha PA Medicare annual wellness visit, initial (Primary Dx); [...] Encounter for immunization; Abnormal electrocardiogram; Left atrial nhvgomtthvs65/03/2025bstract [facility] [address] [facility] [address] [place] [address] Roberto Mcclure MD 10/31/2025amboo flowsheet [facility] [place] [facility] [address] [facility] [address] [place] [address] Anita Rocha PA 10/31/20253179Jevzot25/24/2025bstract [facility] [place] [facility] [address] [facility] [address] [place] [address] Roberto Mcclure MD 10/22/2025bstract [facility] [address] [facility] [address] [place] [address] Roberto Mcclure MD 10/21/2025Refill [address] [place] [address] Anita Rocha PA Attention deficit hyperactivity disorder (ADHD), predominantly inattentive type 10/18/2025bstract [facility] [address] [facility] [address] [place] [address] Roberto Mcclure MD 10/14/2025Refill [address] [place] [address] Anita Rocha PA Type 2 diabetes mellitus without complication, without long-term current use of insulin ([facility])09/19/2025Refill [facility] [address] [facility] [address] [place] [address] Anita Rocha PA Attention deficit hyperactivity disorder (ADHD), predominantly inattentive type 09/03/2025Results Follow-Up [facility] [address] [facility] [address] [place] [address] Anita Rocha, VIRIDIANA Microalbumin / creatinine urine ratio, Lipid panel, TSH W/REFLEX TO FT4, Additional followed-up results: Refill [facility] [address] [facility] [address] [place] [address] Anita Rocha, PA Attention deficit hyperactivity disorder (ADHD), predominantly inattentive type from Last 3 Months Immunizations ImmunizationAdministration DatesNext DueInfluenza, High Dose Seasonal, Preservative Free10/31/2025Influenza, injectable, MDCK, ubnxlvmmjzxt90/18/2019 Influenza, injectable, quadrivalent, preservative free09/19/2021,10/09/2020 Influenza, seasonal, intradermal, preservative free09/01/2017Moderna SARS-CoV-2 50mcg/0.5mL Jmhahvr1608/21/2022Moderna SARS-CoV-2 Nsoixvxhhkl01/13/2021Tdap 04/05/2022Zoster, Rppciqyqqgv84/26/2019,09/22/2019 Family History Medical HistoryRelationNameCommentsMiscarriages / StillbirthsDaughterKara [place] CancerFatherRobert RayDiabetesFatherRobert RayDiabetesFather's Brother 1Lawrence RayDiabetesFather's Brother 2Richard RayDiabetesPaternal GrandmotherHelen Ray ShaqStrokePaternal GrandmotherHelen Tevin NewCancerSonJoseph Conrad RelationNameStatusCommentsDaughterKara PelhamFatherRobert RayFather's Brother 1 Shaq RayFather's Brother 2Richha RayPaternal GrandmotherHelen Tevin New SonJoseph Conrad Social History Tobacco UseTypesPacks/DayYears UsedDateSmoking Tobacco: LboonvRnoybzadkg111.2 11/29/1977 - 01/29/2014Smokeless Tobacco: Never Tobacco Cessation:Counseling Given: Not Answered Alcohol UseStandard Drinks/WeekCommentsNever0 (1 standard drink = 0.6 oz pure alcohol)B1300 Health LiteracyAnswerDate RecordedHow often do you need to have someone help you when you read instructions, pamphlets, or other written material from your doctor or pharmacy?Never08/01/2025Humiliation, Afraid, Rape, and Kick questionnaireAnswerDate RecordedWithin the last year, have you been afraid of your partner or ex-partner?No08/01/2025Within the last year, have you been humiliated or emotionally abused in other ways by your partner or ex-partner?No08/01/2025Within the last year, have you been kicked, hit, slapped, or otherwise physically hurt by your partner or ex-partner?No08/01/2025Within the last year, have you been raped or forced to have any kind of sexual activity by your partner or ex-partner?No08/01/2025Social Connection and Isolation Panel AnswerDate RecordedIn a typical week, how many times do you talk on the phone with family, friends, or neighbors?More than three times a week08/01/2025How often do you get together with friends or relatives?Twice a week08/01/2025How often do you attend mu-ism or jain services?More than 4 times per year 08/01/2025Do you belong to any clubs or organizations such as mu-ism groups, unions, fraternal or athletic groups, or school groups?Yes08/01/2025How often do you attend meetings of the clubs or organizations you belong to?More than 4 times per year08/01/2025re you , , , , never , or living with a partner?Yvkaqxu6208/01/2025UDIT-CAnswerDate RecordedQ1: How often do you have a drink containing alcohol?Never08/01/2025Q2: How many drinks containing alcohol do you have on a typical day when you are drinking? Patient does not drink08/01/2025Q3: How often do you have six or more drinks on one occasion?Never08/01/2025Overall Financial Resource Strain (CARDIA)AnswerDate RecordedHow hard is it for you to pay for the very basics like food, housing, medical care, and heating?Not hard at all08/01/2025PHQ-2AnswerDate Recorded Patient Health Questionnaire-2 Yqchu84101/01/2025[facility] - Occupational Stress QuestionnaireAnswerDate RecordedDo you feel stress - tense, restless, nervous, or anxious, or unable to sleep at night because your mind is troubled all the time - these days?Not at all08/01/2025Exercise Vital SignAnswerDate RecordedOn average, how many days per week do you engage in moderate to strenuous exercise (like a brisk walk)?4 days08/01/2025On average, how many minutes do you engage in exercise at this level?40 min08/01/2025Hunger Vital SignAnswerDate RecordedWithin the past 12 months, you worried that your food would run out before you got the money to buymore.Never true08/01/2025 Within the past 12 months, the food you [...] steady place to sleep or slept in stocktonelter (including now)?No 05/19/2023Housing Stability Vital SignAnswerDate RecordedIn the last 12 months, was there a time when you were not able to pay the mortgage or rent on time?No 08/01/2025In the past 12 months, how many times have you moved where you were living?t any time in the past 12 months, were you homeless or living in a detention (including now)?No08/01/2025CommentsUnknownSex and Gender InformationValueDate RecordedSex Assigned at BirthNot on fileLegal SexFemale 02/10/2023 7:12 PM EDTGender IdentityNot on fileSexual OrientationNot on file Last Filed Vital Signs Vital SignReadingTime TakenCommentsBlood Wamcidci631/8210/31/2025 9:40 AM EST Wvdnt060010/31/2025 9:40 AM FKRUznajpiroxx66.9 ??C (98.5 ??F)04/21/2024 11:03 AM EDTRespiratory Cdoe960901/01/2025 9:40 AM ESTOxygen Qlrdpiiccx26%10/31/2025 9:40 AM ESTInhaled Oxygen Concentration--Ijywog15.8 kg (142 lb 12.8 oz)10/31/2025 9:40 AM HNAHvtphk559.6 cm (5' 4 )10/31/2025 9:40 AM ESTBody Mass Index24.51 10/31/2025 9:40 AM EST Plan of Treatment DateTypeDepartmentCare Team (Latest Contact Info)Pvkjnmgiliv74/03/2026 10:00 AM ESTOffice Visit [facility] [address] [facility] [address] [place] [address] Anita Rocha PA [address] [facility] [address] [place] [address] Health MaintenanceDue DateLast DoneCommentsCT Ykjpssaqpzjs1960FIT-DNA 1960FIT1960FOBT1960Lung Cancer Screening Shared Decision Kpuqno23 1960 0849Yuuzauffrctol1960Pneumococcal Vaccine: 65+ Years (1 of 2 - PCV)1979COVID-19 Vaccine ( season)509/, 04/10/2022, 09/19/2021, Additional history existsDiabetes: Hemoglobin A1C 509/01/2025, 02/02/2025, 07/19/2024, Additional history existsMammogram 603/, 02/11/2024, 11/05/2022, Additional history existsDiabetes: Retinopathy Kylsisvxs88/28/840208/iabetes: Urine Protein Screening 0/01/2025, 07/26/20249374Mpnmcxjndnk07/09/203507/07/2025, 04/15/2015 Colorectal Cancer Lvphdorkg79/09/2035Influenza OjmclqwCvqnioxcj34/03/2025, 09/19/2021, 10/09/2020, Additional history exists Procedures Procedure NamePriorityDate/TimeAssociated DiagnosisCommentsHEPATITIS C AB W/RFL RNS, PCR W/RFL GENOTYPE,NKFSAytdmtg85/03/2025 10:21 AM EST Medicare annual wellness visit, initial Other problems related to lifestyle T4, GUIXCbiyost71/03/2025 9:59 AM EDT CBC (INCLUDES DIFF/PLT)Eywkamz2108/31/2025 9:59 AM EDT Type 2 diabetes mellitus without complication, without long-term current use of insulin (HCC) Benign essential hypertension COMPREHENSIVE METABOLIC GHNCHUeiijfn37/03/2025 9:59 AM EDT Type 2 diabetes mellitus without complication, without long-term current use of insulin (HCC) Benign essential hypertension VITAMIN D 25 HYDROXY TUZECWnlofcl63/03/2025 9:59 AM EDT Myalgia TSH W/REFLEX TO IJ0Eddrrqz48/03/2025 9:59 AM EDT Hypothyroidism, iatrogenic LIPID RZFWJObnymga35/03/2025 9:59 AM EDT Type 2 diabetes mellitus without complication, without long-term current use of insulin (HCC) Benign essential hypertension MICROALBUMIN / CREATININE URINE LEYMIFazxtza75/03/2025 9:59 AM EDT Type 2 diabetes mellitus without complication, without long-term current use of insulin (HCC) Benign essential hypertension POCT GLYCATED HEMOGLOBIN, BFDBNGajrfsu49/03/2025 1:38 PM EDT Type 2 diabetes mellitus without complication, without long-term current use of insulin (HCC) MM TOMOSYNTHESIS SCREENING BI02/15/2025 4:30 PM EDT DIABETIC RETINOPATHY SCREENING - OU - BOTH LIHLBnblyst78/28/2024 OXLPJXDTCYADmyuwnr51/18/2015 12:00 PM EDT from Last 3 Months or Most Recently Relevant to Health Maintenance Results * HEPATITIS C AB W/RFL RNS, PCR W/RFL GENOTYPE,LIPA (10/31/2025 10:21 AM EST) ComponentValueRef RangeTest MethodAnalysis TimePerformed AtPathologist SignatureHEPATITIS C ANTIBODYNonreactiveQUESTComment: HCV antibody was non-reactive. There is no laboratory evidence of HCV infection. In most cases, no further action is required. However, if recent HCV exposure is suspected, a test for HCV RNA (test code 78548) is suggested. REFERENCE RANGE: NONREACTIVE For additional information, please refer to http://education.[employer]/faq/XIF963 (This link is being provided for informational/ educational purposes only.) Specimen (Source)Anatomical Location / LateralityCollection Method / Volume Collection TimeReceived Time10/31/2025 10:21 AM EST10/31/2025 10:21 AM EST Narrative Resulting Agency Comment Performing Organization Information ?Site ID: AMD ?Name: [employer] ?Address: [address] [place] [address] [address] [place] ?Director: Charly Matias M.D.,PhD Authorizing ProviderResult TypeResult StatusAnita Rocha PALAB BLOOD ORDERABLESFinal ResultPerforming OrganizationAddressty/[facility] HospitalPhone Number [facility] * (ABNORMAL) TSH W/REFLEX TO FT4 (08/31/2025 9:59 AM EDT)ComponentValueRef Range Test MethodAnalysis TimePerformed AtPathologist SignatureTSH W/REFLEX TO FT4 0.02(L)0.40 - 4.50 mIU/LQUESTSpecimen (Source)Anatomical Location / Laterality Collection Method / VolumeCollection TimeReceived Time08/31/2025 9:59 AM EDT 08/31/2025 9:59 AM EDT Narrative [facility] - 09/01/2025 10:41 AM EDT FASTING:YES FASTING: YES Resulting Agency Comment Performing Organization Information ?Site ID: QPT ?Name: [employer] [facility] ?Address: [address] [place] [address], [address] [place] [phone] ?Director: London Garza MD Authorizing ProviderResult TypeResult StatusAnita Rocha PALAB BLOOD ORDERABLESFinal ResultPerforming OrganizationAddKindred Hospital South Philadelphiaty/State/ZIP CodePhone Number [facility] * Microalbumin / creatinine urine ratio (08/31/2025 9:59 AM EDT)ComponentValue Ref RangeTest MethodAnalysis TimePerformed AtPathologist SignatureCREATININE, RANDOM VHVCE4798 - 275 mg/dLQUESTALBUMIN, URINE0.5See Note: mg/dLQUESTComment: Reference Range: Reference Range Not established ALBUMIN/CREATININE RATIO, RANDOM URINE9<30 mg/g creatQUESTComment: The ADA defines abnormalities in albumin excretion as follows: Albuminuria Category ?Result (mg/g creatinine) Normal to Mildly increased <30 Moderately increased ? 30-299 Severely increased > OR = 300 The ADA recommends that at least two of three specimens collected within a 3-6 month period be abnormal before considering a patient to be within a diagnostic category. Specimen (Source)Anatomical Location / LateralityCollection Method / Volume Collection TimeReceived TimeUrineUrine specimen obtained by clean catch procedure / Emqgmwb7708/31/2025 9:59 AM EDT1 9:59 AM EDT Narrative [facility] - 09/01/2025 10:41 AM EDT FASTING:YES FASTING: YES Resulting Agency Comment Performing Organization Information ?Site ID: QPT ?Name: [employer] [facility] ?Address: [address] [place] [address], [address] [place] [phone] ?Director: London Garza MD Authorizing ProviderResult TypeResult StatusAnita Rocha [facility] URINE ORDERABLESFinal ResultPerforming OrganizationAddressCity/State/[facility] CodePhone Number [facility] * Vitamin D 25 hydroxy Total (08/31/2025 9:59 AM EDT)ComponentValueRef RangeTest MethodAnalysis TimePerformed AtPathologist SignatureVITAMIN D,25-OH,TOTAL,IA40 30 - 100 ng/mLQUESTComment: Vitamin D Status ? 25-OH Vitamin D: Deficiency: <20 ng/mL Insufficiency: ? 20 - 29 ng/mL Optimal: > or = 30 ng/mL For 25-OH Vitamin D testing on patients on D2-supplementation and patients for whom quantitation of D2 and D3 fractions is required, the QuestAssureD() 25-OH VIT D, (D2,D3), LC/MS/MS is recommended: order code 36174 (patients >2yrs). See Note 1 Note 1 For additional information, please refer to http://education.[employer]/faq/LWF099 (This link is being provided for informational/ educational purposes only.) Specimen (Source)Anatomical Location / LateralityCollection Method / Volume Collection TimeReceived TimeBloodVenous blood specimen / Kougimi1808/31/2025 9:59 AM EDT1 9:59 AM EDT Narrative [facility] - 09/01/2025 10:41 AM EDT FASTING:YES FASTING: YES Resulting Agency Comment Performing Organization Information ?Site ID: QPT ?Name: [employer] [facility] ?Address: [address] [place] [phone] ?Director: London Garza MD Authorizing ProviderResult TypeResult StatusAnita Rocha PAL BLOOD ORDERABLESFinal ResultPerforming OrganizationAddressCity/State/ZIP CodePhone Number [facility] * (ABNORMAL) CBC and differential (08/31/2025 9:59 AM EDT)ComponentValueRef RangeTest MethodAnalysis TimePerformed AtPathologist SignatureWHITE BLOOD CELL COUNT4.73.8 - 10.8 Thousand/uLQUESTRED BLOOD CELL COUNT5.15(H)3.80 - 5.10 Million/aNXKEOKCOMHIEUYVM36.911.7 - 15.5 g/lBJPDKGBRKIUGYRSG65.0(H)35.0 - 45.0 %PPKHTRFO56.280.0 - 100.0 oCSLBRZESX29.927.0 - 33.0 spZSBOCXNJG83.0(L)32.0 - 36.0 g/dLQUESTComment: For adults, a slight decrease in the calculated MCHC value (in the range of 30 to 32 g/dL) is most likely not clinically significant; however, it should be interpreted with caution in correlation with other red cell parameters and the patient's clinical condition. RDW13.411.0 - 15.0 %QUESTPLATELET AKXRB025904 - 400 Thousand/lYABUJMKVM86.27.5 - 12.5 fLQUESTABSOLUTE NEUTROPHILS2,6561,500 - 7,800 cells/uLQUESTABSOLUTE LYMPHOCYTES1,128940 - 3,900 cells/uLQUESTABSOLUTE XVCOEWZNY609748 - 950 cells/uL QUESTABSOLUTE SZMUTOXLOOK22729 - 500 cells/uLQUESTABSOLUTE SIDABMUGM054 - 200 cells/oSOMBXVSKJKMWWGHEE72.5%XZWHXDVRTWMMVJQF80.0%TYMHKYRVPCBBMU60.1%QUEST EOSINOPHILS2.3%QUESTBASOPHILS1.1%QUESTSpecimen (Source)Anatomical Location / LateralityCollection Method / VolumeCollection TimeReceived TimeBloodVenous blood specimen / Ztamjat8508/31/2025 9:59 AM EDT1 9:59 AM EDT Narrative [facility] - 09/01/2025 10:41 AM EDT FASTING:YES FASTING: YES Resulting Agency Comment Performing Organization Information ?Site ID: QPT ?Name: [employer] [facility] ?Address: [address] [place] [address] ?Director: London Garza MD Authorizing ProviderResult TypeResult StatusAnita Sarmiento [employer] BLOOD ORDERABLESFinal ResultPerforming OrganizationAddressCity/State/ZIP CodePhone Number [facility] * T4, free (08/31/2025 9:59 AM EDT)ComponentValueRef RangeTest MethodAnalysis TimePerformed AtPathologist SignatureT4, FREE1.30.8 - 1.8 ng/dLQUESTSpecimen (Source)Anatomical Location / LateralityCollection Method / VolumeCollection TimeReceived Time08/31/2025 9:59 AM EDT1 9:59 AM EDT Narrative [facility] - 09/01/2025 10:41 AM EDT FASTING:YES FASTING: YES Resulting Agency Comment Performing Organization Information ?Site ID: QPT ?Name: [employer] [facility] ?Address: [address] [place] [address] ?Director: London Garza MD Authorizing ProviderResult TypeResult StatusAnita Sarmiento [employer] PALAB BLOOD ORDERABLESFinal ResultPerforming OrganizationAddressCity/[facility] CodePhone Number [facility] * Lipid panel (08/31/2025 9:59 AM EDT)ComponentValueRef RangeTest MethodAnalysis TimePerformed AtPathologist SignatureCHOLESTEROL, BCYWV806<200 mg/dLQUESTHDL IGEEGFRJHDY45> OR = 50 mg/aJTHKIAQTXAZXRFFVANX39<150 mg/dLQUESTLDL CHOLESTEROL 84mg/dL (calc)QUESTComment: Reference range: <100 Desirable range <100 mg/dL for primary prevention; <70 mg/dL for patients with CHD or diabetic patients with > or = 2 CHD risk factors. LDL-C is now calculated using the Brando-Radha calculation, which is a validated novel method providing better accuracy than the Friedewald equation in the estimation of LDL-C. Brando SS et al. MONIQUE. 2013;310(19): 7689-2663 (http://education.[employer]/faq/LGQ707) CHOL/HDLC RATIO2.0<5.0 (calc)QUESTNON HDL CVLCHWCYXCD13<130 mg/dL (calc)QUEST Comment: For patients with diabetes plus 1 major ASCVD risk factor, treating to a non-HDL-C goal of <100 mg/dL (LDL-C of <70 mg/dL) is considered a therapeutic option. Specimen (Source)Anatomical Location / LateralityCollection Method / Volume Collection TimeReceived TimeBloodVenous blood specimen / Aebhjpp2608/31/2025 9:59 AM EDT1 9:59 AM EDT Narrative [facility] - 09/01/2025 10:41 AM EDT FASTING:YES FASTING: YES Resulting Agency Comment Performing Organization Information ?Site ID: QPT ?Name: [employer] [facility] ?Address: [address] [place] [address], [address] [place] [phone] ?Director: London Garza MD Authorizing ProviderResult TypeResult StatusAnita Rocha PAL BLOOD ORDERABLESFinal ResultPerforming OrganizationAddressCity/State/ZIP CodePhone Number [facility] * Comprehensive metabolic panel (08/31/2025 9:59 AM EDT)ComponentValueRef Range Test MethodAnalysis TimePerformed AtPathologist MfdewndafAhefbyh8880 - 99 mg/dLQUESTComment: ? Fasting reference interval YGT294 - 25 mg/dLQUESTCreatinine0.640.50 - 1.05 mg/sDEXJHJQYEH70> OR = 60 mL/min/1.70b7JMRWUBHO/CREATININE RATIOSEE NOTE: (calc)QUESTComment: ?? Not Reported: BUN and Creatinine are within ?? reference range. ? Rzlhqn670293 - 146 mmol/LQUESTPotassium, Bld4.63.5 - 5.3 mmol/IZZUPJQagsrjbj422 98 - 110 mmol/LQUESTCarbon Aqmmeeq2259 - 32 mmol/LQUESTCalcium9.08.6 - 10.4 mg/dLQUESTPROTEIN, TOTAL7.06.1 - 8.1 g/dLQUESTALBUMIN4.43.6 - 5.1 g/dLQUEST GLOBULIN2.61.9 - 3.7 g/dL (calc)QUESTALBUMIN/GLOBULIN RATIO1.71.0 - 2.5 (calc) QUESTBILIRUBIN, TOTAL0.50.2 - 1.2 mg/dLQUESTALKALINE LXKIFIPQDJS1501 - 153 U/L FGTHGBAH9541 - 35 U/RLGMIVHYZ860 - 29 U/LQUESTSpecimen (Source)Anatomical Location / LateralityCollection Method / VolumeCollection TimeReceived TimeBlood Venous blood specimen / Efucxql5508/31/2025 9:59 AM EDT1 9:59 AM EDT Narrative [facility] - 09/01/2025 10:41 AM EDT FASTING:YES FASTING: YES Resulting Agency Comment Performing Organization Information ?Site ID: QPT ?Name: [employer] [facility] ?Address: [address] [place] [address], [address] [place] [phone] ?Director: London Garza MD Authorizing ProviderResult TypeResult StatusAnita Rocha PALAB BLOOD ORDERABLESFinal ResultPerforming OrganizationAddressCity/State/ZIP CodePhone Number [facility] * POCT Glycated hemoglobin, total (08/01/2025 1:38 PM EDT)ComponentValueRef RangeTest MethodAnalysis TimePerformed AtPathologist SignatureHemoglobin A1C 5.1Specimen (Source)Anatomical Location / LateralityCollection Method / Volume Collection TimeReceived KtyjKavef09/01/2025 1:38 PM EDT Narrative Authorizing ProviderResult TypeResult StatusAnita Rocha PAPOINT OF CARE TEST ENTER/EDIT ORDERABLESFinal Result * MM TOMOSYNTHESIS SCREENING BI (02/15/2025 4:30 PM EDT)Anatomical Region LateralityModalityOtherSpecimen (Source)Anatomical Location / Laterality Collection Method / VolumeCollection TimeReceived Time02/15/2025 4:30 PM EDT Narrative 02/15/2025 4:31 PM EDT [facility] ?[address] ? [place] [address] ? Mammography Report ? Signed ? Patient: DENCER,BROOKLYNN M ? MR#: [id number] ?? : 1960 ?Acct:[id number] ?? Age/Sex: 64 / F ?ADM Date: 02/15/25 ?? Loc: MAMMO ? Attending Dr: ANITA ROCHA ? Ordering Physician: ANITA ROCHA ? Results: ? Date of Service: 02/15/25 ?Follow Up: ? Procedure(s): MM tomosynthesis screening BI ?? Accession Number(s): [id number] ? cc: ROBERTO MCCLURE ; ANITA ROCHA ? Patient Name: ? BROOKLYNN DENCER ? MR#: [id number] ? : 1960 ? Exam Date: 02/15/2025 ?? Ordering Doctor: DR ANITA KEMP ? RADIOLOGY REPORT ? PROCEDURE: ? MM TOMOSYNTHESIS SCREENING BI ? COMPARISON: ? MM TOMOSYNTHESIS SCREENING BI, 02/11/2024. ??MG MAMM SCREEN 3D ?? DEANN CAD, 11/05/2022. ??MG MAMM SCREEN DEANN W CAD, 01/30/2021. ??MG MAMM DEANN SCRN W ?? CAD DIG, 04/09/2015. ? INDICATIONS: ? Screening ? Calculator Name ? NCI Breast Cancer Risk Assessment Tool ?? 5 Year Breast Cancer Risk ? 1.20% ?? Lifetime Breast Cancer Risk ? 4.70% ?? Personal Breast Cancer ?No ?? Personal Ovarian Cancer ? No ?? Treatments ? None ?? Family Cancers ? Father with esophageal cancer at age 74. ? LOCATION: ? [facility] ? BREAST COMPOSITION: ? The breasts are heterogeneously dense,which may ?? obscure small masses. ? FINDINGS: ? DIAGNOSTIC CATEGORY 1--NEGATIVE. ? LEFT BREAST: ??No significant suspicious finding. ? RIGHT BREAST: ??No significant suspicious finding. ? RECOMMENDATIONS: ? ROUTINE MAMMOGRAM AND CLINICAL EVALUATION IN 12 MONTHS. ? PLEASE NOTE: ??A NORMAL MAMMOGRAM DOES NOT EXCLUDE THE POSSIBILITY OF BREAST ?? CANCER. ??A CLINICALLY SUSPICIOUS PALPABLE LUMP SHOULD BE BIOPSIED. ? Dictated by: Amanuel Mancuso DO on 02/15/2025 at 16:29 ? Approved by: Amanuel Mancuso DO on 02/15/2025 at 16:30 ? Dictated By: ?Amanuel Mancuso M.D. ? Signed By: ?02/15/25 1631 ? DD/ 1630 ? TD/TT: ? Computing Consultant: Procedure Note Radiology, Radiologist, MD - 02/15/2025 [place] [address] Mammography Report Signed Patient: BROOKLYNN [facility]#: [id number] : 1960Acct:[id number] Age/Sex: 64 / FADM Date: 02/15/25 Loc: MAMMO Attending Dr: ANITA ROCHA Ordering Physician: ANITA ROCHA MResults: Date of Service: 02/15/25Follow Up: Procedure(s): MM tomosynthesis screening BI Accession Number(s): [id number] cc: ROBERTO MCCLURE ; ANITA ROCHA Patient Name: BROOKLYNN KAISER MR#: [id number] : 1960 Exam Date: 02/15/2025 Ordering Doctor: DR ANITA ROCHA PA RADIOLOGY REPORT PROCEDURE: MM TOMOSYNTHESIS SCREENING BI COMPARISON: MM TOMOSYNTHESIS SCREENING BI, 02/11/2024. MG MAMM [id number] DEANN CAD, 11/05/2022. MG MAMM SCREEN DEANN W CAD, 01/30/2021. MG MAMM BILSCRN W CAD DIG, 04/09/2015. INDICATIONS: Screening Calculator Name NCI Breast Cancer Risk Assessment Tool 5 Year Breast Cancer Risk 1.20% Lifetime Breast Cancer Risk 4.70% Personal Breast Cancer No Personal Ovarian Cancer No Treatments None Family Cancers Father with esophageal cancer at age 74. LOCATION: [facility] BREAST COMPOSITION: The breasts are heterogeneously [...] M.D. Signed By:02/15/25 1631 DD/ 1630 TD/TT: Computing Consultant: Authorizing ProviderResult TypeResult StatusAnita Rocha [facility]AG[facility] Final Result * Diabetic Retinopathy Screening - OU - Both Eyes (04/25/2024)ComponentValueRef RangeTest MethodAnalysis TimePerformed AtPathologist SignatureRESULTSndr Anatomical RegionLateralityModalityHeadOtherSpecimen (Source)Anatomical Location / LateralityCollection Method / VolumeCollection TimeReceived Time 04/25/2024 Narrative Authorizing ProviderResult TypeResult StatusRoberto OLEA PHOTOGRAPHY Final Result * Colonoscopy (04/15/2015 12:00 PM EDT)Anatomical RegionLateralityModality EndoscopySpecimen (Source)Anatomical Location / LateralityCollection Method / VolumeCollection TimeReceived Time04/15/2015 12:00 PM EDT Narrative 04/15/2015 12:00 PM EDT PERFORMED AT [facility] LOCATION:[id number] diverticulosis/ int./ext. hemorrhoids Procedure Note CONVERSION, GENERIC - 04/15/2023 PERFORMED AT [facility] LOCATION:[id number] diverticulosis/ int./ext. hemorrhoids Authorizing ProviderResult TypeResult StatusDamarlys Mcclure MDENDOSCOPY PROCEDURE ORDERABLESFinal Result from Last 3 Months or Most Recently Relevant to Health Maintenance [place] [address] Care Teams Team MemberRelationshipSpecialtyStart DateEnd Date Roberto Mcclure MD [address] [place] [address] PCP - GeneralInternal Medicine04/12/23
--- NOTE | 2025-11-12 08:00 | CA_ITS ---
Patient Name: BROOKLYNN KAISER MR#: [id number] : 1960 Exam Date: 11/12/2025 Ordering Doctor: DR DELROY KEMP ECHOCARDIOGRAM REPORT PROCEDURE: CA ECHO DOPPLER COMPLETE INDICATIONS: R/o mitral valve regurgitation, diabetes COMPARISON: None. DESCRIPTION: COMPLETE ECHOCARDIOGRAM Real-time transthoracic echocardiography with 2D, M-mode, spectral and color flow Doppler performed. QUALITY: Technical quality was good. LEFT VENTRICLE: Normal chamber size. Mildly thickened septal wall. Normal left ventricle systolic function without wall motion abnormalities, ejection fraction estimated to be 65% LV EF: Normal left ventricular ejection fraction, (>55%). DIASTOLIC: Normal diastolic function. ATRIAL SEPTUM: Visually appears intact. LEFT ATRIUM: Normal chamber size. RIGHT ATRIUM: Normal chamber size. RIGHT VENTRICLE: Normal chamber size. Normal right ventricular systolic function. TRICUSPID VALVE: Normal mobility and thickness. No stenosis with no regurgitation. MITRAL VALVE: Normal mobility and thickness. No evidence of mitral valve stenosis. There is no mitral annular calcification. Trivial mitral regurgitation. AORTIC VALVE: Normal trileaflet appearance. No visible sclerosis. Normal leaflet mobility. No evidence of aortic valve stenosis. No aortic regurgitation. AORTIC ROOT: Normal diameter and appearance. PULMONIC VALVE: Normal thickness and mobility. No stenosis. Trivial regurgitation. PERICARDIUM: No evidence of pericardial effusion. IVC: Collapes with inspirations. IVC is normal in size. PLEURA: CONCLUSION: Mildly thickened septal wall Normal left ventricle systolic function without wall motion abnormalities, EF 65% Normal left ventricle diastolic function Normal right ventricle size and systolic function No significant valvular abnormalities Adult Echocardiography Procedure Report Left Ventricle LVEDD (3.7 - 5.6 cm): 3.97 cm LVESD (2.2 - 4.0 cm): 2.52 cm LVIVS thickness (0.6 - 1.2 cm): 1.15 cm LVPW thickness (0.5 - 1.0 cm): 0.95 cm e': 0.15 m/s E - e': 5.62 LVOT Max Gradient: 3.95 mm[Hg] LVOT Area (cm2): 0.99 m/s Peak Velocity (LVOT): 0.99 m/s Mean Velocity (LVOT): 0.67 m/s LVOT Diameter 2.02 cm Left Ventricular Ejection Fraction: 65.71 % Left Atrium LA Volume Index (2D A2C): 29.41 ml/m2 Left Atrium Systolic Dimension: 3.59 cm Mitral Valve MV E to A Ratio: 1.40 MV Max Gradient: MV Mean Gradient: Mitral Valve A-Wave Peak Velocity: 0.59 m/s Mitral Valve E-Wave Peak Velocity: 0.83 m/s Cardiovascular Orifice Area: Right Ventricle RV Internal Diastolic Dimension: Aorta AO Root Diam: 2.97 cm Ascending Ao Diam: Aortic Valve AoV Area ([place]): 2.70 cm2, 2.70 cm2 AoV Area (VTI): 2.43 cm2, 2.43 cm2 Deceleration [place]: Pressure Half-Time: Peak Velocity(Antegrade Flow): 1.17 m/s Peak Gradient(Antegrade Flow): 5.52 mm[Hg] Mean Velocity(Antegrade Flow): 0.77 m/s Mean Gradient(Antegrade Flow): 2.79 mm[Hg] Velocity Time Integral: 27.18 cm Tricuspid Valve Peak Velocity (Regurgitant Flow): Peak Velocity: Pulmonic Valve Mean Gradient: Mean Velocity: Peak Velocity: 0.92 m/s Peak Gradient: 3.35 mm[Hg] Right Atrium Right Atrium Systolic Pressure: 23.71 ml, 23.71 ml Dictated by: Marry Hernandez MD on 11/12/2025 at 18:56 Approved by: Marry Hernandez MD on 11/12/2025 at 19:02
== END 2025-11-12 07:51 | disposition home or self-care (01) ==
LOC: CARD 07:50
PROVIDERS: PCP Internal Medicine; Visit Provider Physician Assistant
DX: E28.39 Other primary ovarian failure (principal); I10 Essential (primary) hypertension; R94.31 Abnormal electrocardiogram [ECG] [EKG]; I51.7 Cardiomegaly; Z87.891 Personal history of nicotine dependence; J44.9 Chronic obstructive pulmonary disease, unspecified; R91.8 Other nonspecific abnormal finding of lung field
CPT/HCPCS: 71271; 77080; 93306